=== PATIENT | male | born 1945 | race Caucasian/White ===

== ENCOUNTER 2018-03-12 19:15 | Inpatient (IN) | payer MEDICARE ==
[2018-03-12] MEDS ORDERED: PHYTONADIONE 5 MG in SODIUM CHLORIDE 0.9% 50 ML IVPB STA (19:35)
--- NOTE | 2018-03-12 19:55 | ED ---
General Adult HPI - General Chief complaint: GI Bleed Stated complaint: GI Bleed Time Seen by Provider: 03/12/18 19:25 Source: patient, RN notes reviewed Mode of arrival: EMS Limitations: no limitations - History of Present Illness Initial comments: This is a 72-year-old male who was transferred from [facility] to . Patient went there because he was lightheaded and short of breath lately and he also had some black stools. According to the physician at [facility] patient's hemoglobin was 4.5 and they were about to transfer him a unit of blood and he told me that he did have some guaiac positive stools. Patient was also on Coumadin which was not relayed to me and he did not have his Coumadin reversed at [facility]. Patient states she's also been very weak but denies chest pain or palpitations. Patient denies any recent fever chills per patient denies abdominal pain patient denies nausea vomiting diarrhea. - Related Data Allergies Allergy/AdvReac Type Severity Reaction Status Date / Time No Known Allergies Allergy Verified 03/12/18 19:32 Review of Systems ROS Statement: Those systems with pertinent positive or pertinent negative responses have been documented in the HPI. ROS Other: All systems not noted in ROS Statement are negative. Past Medical History Past Medical History: Hyperlipidemia, Hypertension, Skin Disorder, Thyroid Disorder Additional Past Medical History / Comment(s): urinary incontinence, reflex bradycardia History of Any Multi-Drug Resistant Organisms: None Reported Past Surgical History: Pacemaker Additional Past Surgical History / Comment(s): defibrillator Past Psychological History: No Psychological Hx Reported Smoking Status: Never smoker Past Alcohol Use History: None Reported Past Drug Use History: None Reported General Exam - General Exam Comments Initial Comments: GENERAL: Patient is well-developed and well-nourished. Patient is nontoxic and well- hydrated and is in mild distress. ENT: Neck is soft and supple. No significant lymphadenopathy is noted. Oropharynx is clear. Moist mucous membranes. Neck has full range of motion without eliciting any pain. EYES: Conjunctiva is pale. Extraocular movements were intact and pupils were equal round and reactive to light. Eyelids were unremarkable. PULMONARY: Unlabored respirations. Good breath sounds bilaterally. No audible rales rhonchi or wheezing was noted. CARDIOVASCULAR: There is a regular rate and rhythm without any murmurs gallops or rubs. ABDOMEN: Soft and nontender with normal bowel sounds. No palpable organomegaly was noted. There is no palpable pulsatile mass. SKIN: Patient's skin is pale. NEUROLOGIC: Patient is alert and oriented x3. Cranial nerves II through XII are grossly intact. Motor and sensory are also intact. Normal speech, volume and content. Symmetrical smile. MUSCULOSKELETAL: Normal extremities with adequate strength and full range of motion. LYMPHATICS: No significant lymphadenopathy is noted PSYCHIATRIC: Normal psychiatric evaluation. Limitations: no limitations Course Vital Signs 03/12/18 03/12/18 19:23 19:40 Temperature 97.7 F 98.1 F Pulse Rate 78 70 Respiratory 16 16 Rate Blood Pressure 144/67 141/68 O2 Sat by Pulse 100 99 Oximetry Medical Decision Making - Medical Decision Making I ordered a unit of fresh frozen plasma. I gave the patient vitamin K and I also gave the patient 1 unit of packed red blood cells. I spoke with Dr. Michel to admit the patient ICU he was in agreement. I spoke with the sound physicians in the accepted the admission. I wrote admitting orders. Critical Care Time Critical Care Time: Yes Total Critical Care Time: 35 Disposition Clinical Impression: Coagulopathy, GI bleed, Anemia Disposition: ADMITTED IP TO THIS HOSP Is patient prescribed a controlled substance at d/c from ED?: No Referrals: Nile Brower MD [Primary Care Provider] - 1-2 days Time of Disposition: 19:54
[2018-03-12] MEDS ORDERED: NALOXONE 0.4 MG/ML 1 ML VIAL IV PRN (19:56)
[2018-03-12 21:58] LABS: Glucose,Whole Blood 98 mg/dL (75-99)
[2018-03-12 23:44] VITALS: BMI 30.7
[2018-03-13] MEDS ORDERED: ALPRAZolam 0.25 MG TAB PO PRN (01:20)
[2018-03-13] MEDS ORDERED: TEMAZEPAM 15 MG CAP PO PRN (01:20)
[2018-03-13] MEDS ORDERED: HYDROcodone/APAP 5-325MG 1 EACH TAB PO PRN (01:20)
[2018-03-13 04:46] LABS: Calcium 8.6 mg/dL (8.4-10.2); INR 1.8 (<1.2); Magnesium 2.2 mg/dL (1.6-2.3); Phosphorus 3.4 mg/dL (2.5-4.5); Potassium 3.7 mmol/L (3.5-5.1); Prothrombin Time 16.9 sec (9.0-12.0)
[2018-03-13 04:56] LABS: Anisocytosis Slight; Basophils % (A) 0 %; Eosinophils # (A) 0.1 k/uL (0-0.7); Eosinophils % (A) 2 %; Hypochromasia Marked; Lymphocytes # (A) 0.8 k/uL (1.0-4.8); Lymphocytes % (A) 16 %; MCH 22.9 pg (25.0-35.0); MCHC 29.7 g/dL (31.0-37.0); MCV 77.2 fL (80.0-100.0); Mean Platelet Volume 7.8; Microcytosis Slight; Monocytes # (A) 0.4 k/uL (0-1.0); Monocytes % (A) 7 %; Neutrophils # (A) 3.8 k/uL (1.3-7.7); Neutrophils % (A) 72 %; Platelet Count 201 k/uL (150-450); Poikilocytosis Marked; RBC 2.52 m/uL (4.30-5.90); RDW 16.4 % (11.5-15.5); WBC 5.2 k/uL (3.8-10.6)
[2018-03-13 05:27] LABS: HCT 19.5 % (39.0-53.0); HGB 5.8 gm/dL (13.0-17.5)
[2018-03-13] MEDS ORDERED: POTASSIUM CHLORIDE ER 20 MEQ TAB.ER PO SCH (06:00)
[2018-03-13] MEDS: SODIUM CHLORIDE 0.9% 1,000 ML IV SCH ×2 (06:07→12:26)
[2018-03-13] MEDS: LEVOTHYROXINE 75 MCG TAB PO SCH (06:08)
--- NOTE | 2018-03-13 06:59 | XR ---
EXAMINATION TYPE: XR chest 1V DATE OF EXAM: 03/13/2018 HISTORY: chf. REFERENCE: NONE. FINDINGS: There is a bipolar pacemaker in place on the left. Heart size is within normal limits. The lungs are clear. Pleural spaces are clear. IMPRESSION: NO ACTIVE INTRATHORACIC DISEASE.
--- NOTE | 2018-03-13 07:46 | HP ---
HISTORY AND PHYSICAL CHIEF COMPLAINT: GI bleed. HISTORY OF PRESENT ILLNESS: This 72 -year-old gentleman with past medical history of hypertension, hyperlipidemia, history hypothyroidism, history of COPD, chronic persistent bradycardia, history of AICD, permanent pacemaker being followed by Dr. Brower in the outpatient setting was complaining of gastrointestinal bleed. The patient had black-colored stools for several days, because of weakness and continued melena, the patient presented to [facility] and hemoglobin was found to be 4.5. The patient was transferred to [facility] and admitted for further evaluation and treatment. The patient was given FFP, vitamin K IV and as well as 1 unit transfusion. Patient being closely monitored in ICU at this time. The patient did have some melenic stools in November while the patient was in [place] but no detailed workup was carried out. There is no history of fever, rigors. No history of headache, loss of consciousness, seizures. PAST MEDICAL HISTORY: Hypertension, hyperlipidemia, hypothyroidism, history of urinary incontinence, Cholecystectomy, history of AICD. MEDICATIONS PRIOR TO ADMISSION: Home medications are: 1. Synthroid 150 mcg p.o. daily. 2. Lipitor 20 mg. 3. Aspirin 81 mg b.i.d. 4. Cordarone 200 mg p.o. daily. 5. Zyloprim 300 mg. 6. Metoprolol 25 mg p.o. b.i.d. 7. Zestril 10 mg p.o. daily. 8. Proscar 5 mg. 9. Coumadin 5 mg q.a.m., 2.5 mg p.o. ALLERGIES: None. FAMILY HISTORY: No history of heart disease or strokes in the family. SOCIAL HISTORY: No history of smoking. No alcohol intake. REVIEW OF SYSTEMS: ENT: No diminished vision. No diminished hearing. Cardiovascular: No angina or palpitations, otherwise as mentioned. Respiration: No cough, hemoptysis. GI no nausea or vomiting. : No dysuria. Nervous system: No numbness, weakness. Allergy/Immunology: No asthma or hayfever. Musculoskeletal: As mentioned earlier. Hematology/Oncology: As mentioned. Endocrine: As mentioned earlier. Constitutional: As mentioned earlier. Dermatology: Negative. Rheumatology: Negative. Psychiatric: As mentioned earlier. PHYSICAL EXAMINATION: Alert and oriented times three. Pulse 64, blood pressure 140/70, respiration 20, temperature 98.4, pulse ox 100% on 2 L. HEENT conjunctivae pale. Oral mucosa moist. Neck is no jugular venous distention. No carotid bruit. No lymph node enlargement. Cardiovascular S1, S2. No S3, no S4. RESPIRATORY: Breath sounds diminished in the bases. No rhonchi. No crackles. ABDOMEN: Soft, nontender. No mass palpable. No hepatosplenomegaly. No ascites. Legs no edema. No swelling. NERVOUS SYSTEM: Higher functions as mentioned. Moves all 4 limbs. No focal motor or sensory deficits. Lymphatics: No lymph nodes palpable in the neck, axillae or groin. Skin no ulcer, rash or bleeding. Joints no active deforming arthropathy. CURRENT LABS: Glucose 98. The labs are reviewed. ASSESSMENT: 1. Acute blood loss anemia with possibly upper gastrointestinal bleeding. Rule out peptic ulcer disease. 2. Coumadin monitoring. 3. Hypertension. 4. Hyperlipidemia. 5. Hypothyroidism. 6. Urine incontinence. 7. AICD. 8. Cholecystectomy. RECOMMENDATIONS: In this 72-year-old gentleman who presented with multiple complex medical issues, I would recommend to continue current management and hold Coumadin at this time. Gastroenterology consultation, Dr. Michel for ICU management and p.o. otherwise monitor PT/INR, CBC, BMP. We will follow the patient closely. Discussed with the patient who understands and agrees. Further recommendations to follow. Proton pump inhibitors. See orders for details. MMODL / IJN: [id number] /
[2018-03-13] MEDS: METOPROLOL TARTRATE 25 MG TAB PO SCH ×2 (08:44→20:49)
[2018-03-13] MEDS: PANTOPRAZOLE 40 MG/10 ML VIAL IV SCH ×2 (08:44→20:49)
[2018-03-13] MEDS: AMIODARONE 200 MG TAB PO SCH (08:44)
[2018-03-13] MEDS ORDERED: PANTOPRAZOLE 40 MG/10 ML VIAL IV SCH (09:00)
--- NOTE | 2018-03-13 10:37 | CONS ---
CONSULTATION HISTORY OF PRESENT ILLNESS: Mr. Liriano is a 72-year-old male who is transferred from the [facility] for GI bleeding. He is followed by Dr. Brower and Quincy Baez who is his directional driller. He has a history of what appears to be paroxysmal atrial fibrillation and cardiomyopathy. He is status post AICD pacemaker placement in 2012. He was told he had a prior heart attack in the past, although he does not recall the timing. He does not feel the arrhythmia. For the last 2 weeks he has been complaining of progressive symptoms of dyspnea and fatigue and when he came into the emergency room, he was noted to be severely anemic and he had dark stool. The patient denies any nausea or vomiting. He denies any chest pain. He had an episode of dark stools a few months ago while in [place]. His last colonoscopy was 10 years ago. He denies any palpitation, but he has some dizziness with change in position recently. He has no PND, orthopnea, or peripheral edema. He is usually active physically and had no significant symptoms. His coronary risk factors are negative for smoking. He is a nondiabetic. He is hyperlipidemic and has hypertension. MEDICATION: At home: Coumadin, Proscar, Zestril 10 mg daily, metoprolol tartrate 25 mg, Zyloprim, Cordarone 200 mg daily, aspirin 81 mg daily, Lipitor 20 mg daily, and levothyroxine. The patient was on Xarelto in the past and was stopped because of recurrent epistaxis. REVIEW OF SYSTEMS: RESPIRATORY system: He has no history of documented asthma, emphysema or bronchitis. GI system: He has the dark stool as noted, black in color in November as well as now. system: No dysuria, hematuria. Nervous system: No history of stroke or seizure. PHYSICAL EXAMINATION: 72-year-old male, alert, oriented, in no apparent distress. Blood pressure 136/70 with a heart rate in the 60s. HEAD: Normocephalic. Eyes sclerae anicteric. Neck good carotid upstroke. No bruit. LUNGS: Clear to auscultation. HEART: Regular regular rate and rhythm S1, S2. No S3, no S4. No rub. No murmur. ABDOMEN: Soft, nontender. Positive bowel sounds. No megaly. EXTREMITIES: No edema. Intact distal pulses. LAB DATA: Revealed a hemoglobin 5.8, platelet count of 201. INR 1.8. BUN and creatinine 26 and 1.3, potassium 3.7. EKG performed in [place] revealed a sinus mechanism with a normal axis and intervals with nonspecific T-wave inversion cannot exclude ischemia. IMPRESSION: 1. Severe anemia with gastrointestinal bleeding related to the anticoagulation. 2. History of paroxysmal atrial fibrillation remains in sinus mechanism. 3. Probable cardiomyopathy, although I do not have evaluation of his left ventricular systolic function. 4. Status post AICD, permanent pacemaker implantation. 5. History of hypertension. 6. Hyperlipidemia. RECOMMENDATION: From the cardiac standpoint, I will obtain echocardiogram with Doppler. I will try to obtain the prior workup that was done by his prior directional driller as well as [facility] at the time of the implantation. An echocardiogram with Doppler will be obtained. I will obtain an evaluation of his thyroid function test because of the chronic treatment with amiodarone. Depending on his progress, further recommendation will be made. Thank you for this consult. We will follow with you. NELSY / IJN: [id number] /
--- NOTE | 2018-03-13 13:42 | P.CNPUL ---
History of Present Illness Consult date: 03/13/18 History of present illness: This is a 72-year-old male patient was hospitalized for profound anemia and GI bleeding. Apparently the patient has been having melanotic stool for the past 2 weeks. The patient is also on Coumadin. He presented to the hospital because of generalized weakness and dyspnea and his hemoglobin was as low as 4.9. Immediately received 2 units of packed RBC and is up to 5.8 this morning. He is not having any abdominal pain. No nausea or vomiting. No diarrhea. No hematemesis. He has no chest pain. He has been on Coumadin for many years. He had elevation his INR at 2.9 and he is INR today is down to 1.8 after receiving 5 mg of vitamin K. He is resting comfortably in bed. He is hemodynamically stable. He is receiving normal saline today to 150 mL an hour. He is nothing by mouth for now. He is awaiting a GI consultation. He is known to have cardiac disease including a pacemaker/defibrillator insertion. I think the anticoagulation was offered to him for chronic atrial fibrillation. First episode of GI bleed. No intake of nonsteroidal medication. No 7 liver cirrhosis. Most of alcoholism. No 70 peptic ulcer disease. Review of Systems Constitutional: Reports fatigue, Reports weakness Eyes: denies blurred vision, denies bulging eye, denies decreased vision, denies diplopia Ears: deny: decreased hearing, ear discharge, earache Ears, nose, mouth and throat: Denies headache, Denies sore throat Cardiovascular: Reports decreased exercise tolerance, Reports dyspnea on exertion Respiratory: Reports dyspnea Gastrointestinal: Reports melena Genitourinary: Reports as per HPI Musculoskeletal: Denies myalgias Musculoskeletal: absent: ankle pain, ankle stiffness, ankle swelling Integumentary: Denies pruritus, Denies rash Neurological: Denies numbness, Denies weakness Psychiatric: Denies anxiety, Denies depression Endocrine: Denies fatigue, Denies weight change Past Medical History Past Medical History: Hyperlipidemia, Hypertension, Skin Disorder, Thyroid Disorder Additional Past Medical History / Comment(s): Coronary artery disease, history of insertion of a pacer/defibrillator, chronic atrial fibrillation, hypertension , hyperlipidemia, hypothyroidism, chronic atrial fibrillation maintained on anticoagulation with warfarin, urinary incontinence History of Any Multi-Drug Resistant Organisms: None Reported Past Surgical History: Cholecystectomy, Pacemaker Additional Past Surgical History / Comment(s): defibrillator Past Anesthesia/Blood Transfusion Reactions: No Reported Reaction Type of Cardiac Device: Permanent Pacemaker, AICD Device Placement Date:: u Smoking Status: Never smoker Medications and Allergies Home Medications Medication Instructions Recorded Confirmed Type Allopurinol [Zyloprim] 300 mg PO DAILY 03/12/18 03/13/18 History Amiodarone [Cordarone] 200 mg PO DAILY 03/12/18 03/13/18 History Aspirin [Children's Aspirin] 81 mg PO DAILY 03/12/18 03/13/18 History Atorvastatin [Lipitor] 20 mg PO DAILY 03/12/18 03/13/18 History Finasteride [Proscar] 5 mg PO DAILY 03/12/18 03/13/18 History Levothyroxine Sodium [Synthroid] 150 mcg PO DAILY 03/12/18 03/13/18 History Metoprolol Tartrate 25 mg PO DAILY 03/12/18 03/13/18 History Warfarin [Coumadin] 5 mg PO SUMOWEFR 03/12/18 03/13/18 History Lisinopril [Zestril] 20 mg PO DAILY 03/13/18 03/13/18 History Sodium Chloride [[place]] 1 spray EA NOSTRIL DAILY 03/13/18 03/13/18 History Warfarin Sodium [Coumadin] 2.5 mg PO TUTHSA 03/13/18 03/13/18 History Allergies Allergy/AdvReac Type Severity Reaction Status Date / Time No Known Allergies Allergy Verified 03/13/18 12:00 Physical Exam Vitals: Vital Signs Temp Pulse Resp BP Pulse Ox 03/13/18 12:19 97.4 F L 20 L 16 129/71 99 03/13/18 12:00 97.4 F L 57 L 19 124/69 94 L 03/13/18 11:30 67 18 124/69 100 03/13/18 11:00 57 L 22 136/73 96 03/13/18 10:46 98.5 F 57 L 16 136/73 96 03/13/18 10:30 62 23 133/75 98 03/13/18 10:16 98.0 F 57 L 16 133/75 97 03/13/18 10:06 97.9 F 58 L 14 140/75 98 03/13/18 10:00 61 17 140/75 96 03/13/18 09:39 98.4 F 61 20 140/75 100 03/13/18 09:30 67 14 140/75 100 03/13/18 09:00 66 18 136/75 97 03/13/18 08:30 65 38 H 136/75 100 03/13/18 08:00 98.4 F 65 18 146/75 98 03/13/18 07:30 65 18 146/75 03/13/18 07:17 98.7 F 67 20 146/75 98 03/13/18 07:00 65 17 135/69 99 03/13/18 06:47 98.7 F 66 20 135/69 95 03/13/18 06:37 98.8 F 65 16 133/76 98 03/13/18 06:00 57 L 22 129/70 99 03/13/18 05:00 66 16 137/69 98 03/13/18 04:30 65 20 137/69 99 03/13/18 04:00 98.2 F 69 16 145/69 93 L 03/13/18 03:30 61 22 134/69 95 03/13/18 03:11 98.7 F 61 18 124/66 98 03/13/18 03:00 55 L 18 138/68 93 L 03/13/18 02:30 60 20 129/63 93 L 03/13/18 02:00 66 18 135/67 92 L 03/13/18 01:52 98.5 F 67 18 128/67 92 L 03/13/18 01:30 69 20 136/63 94 L 03/13/18 01:22 98.7 F 70 20 138/68 98 03/13/18 01:12 98.7 F 64 18 136/63 99 03/13/18 01:00 70 16 140/66 96 03/13/18 00:30 67 20 147/72 100 03/13/18 00:05 98.5 F 64 20 144/76 100 03/13/18 00:00 98.5 F 64 18 144/76 98 03/12/18 23:30 72 18 140/65 99 03/12/18 23:01 98.7 F 67 18 140/65 100 03/12/18 23:00 72 18 146/68 100 03/12/18 22:31 98.5 F 65 20 146/68 100 03/12/18 22:30 66 22 136/73 100 03/12/18 22:21 98.7 F 67 18 136/73 100 03/12/18 22:00 98.7 F 62 20 148/76 100 03/12/18 20:54 97.4 F L 70 18 150/70 100 03/12/18 19:40 98.1 F 70 16 141/68 99 03/12/18 19:23 97.7 F 78 16 144/67 100 Intake and Output 03/12/18 03/13/18 03/13/18 22:59 06:59 14:59 Intake Total 770 617 6081 Output Total 100 400 Balance 298 898 840 Intake: IV 298 360 620 FFP 298 PRBC 310 620 Phytonadione 5 mg In 50 Sodium Chloride 0.9% 50 ml @ 100 mls/hr IVPB ONCE STA Rx#:[id number] Oral 30 Blood Product 0 608 620 Ffp 24 Cpd Unit 0 298 [id number] Rc As-1 Unit 310 [id number] Rc As-1 Unit 310 [id number] Rc As-1 Unit 0 310 [id number] Output: Urine 100 400 Other: Voiding Method Bedside Commode Urinal # Voids 1 0 Weight 99.79 kg 100.4 kg Gen. appearance the patient is calm, likely distress Head exam was generally normal. There was no scleral icterus or corneal arcus. Mucous membranes were moist. Neck was supple and without jugular venous distension, thyromegaly, or carotid bruits. Carotids were easily palpable bilaterally. There was no adenopathy. Lungs were clear to auscultation and percussion, and with normal diaphragmatic excursion. No wheezes or rales were noted. Cardiac exam revealed the PMI to be normally situated and sized. The rhythm was regular and no extrasystoles were noted during several minutes of auscultation. The first and second heart sounds were normal and physiologic splitting of the second heart sound was noted. There were no murmurs, rubs, clicks, or gallops. Patient has a pacemaker in place and is rhythm is irregularly this point in time consistent with atrial fibrillation Abdominal exam revealed normal bowel sounds. The abdomen was soft, non-tender, and without masses, organomegaly, or appreciable enlargement of the abdominal aorta. Examination of the extremities revealed easily palpable radial, femoral and pedal pulses. There was no cyanosis, clubbing or edema. Examination of the skin revealed no evidence of significant rashes, suspicious appearing nevi or other concerning lesions. Neurologic to the patient is awake and alert and there is no focal neurological deficit. Results - Laboratory Findings CBC and BMP: 03/13/18 04:19 03/13/18 04:19 PT/INR, D-dimer PT 16.9 sec (9.0-12.0) H 03/13/18 04:19 INR 1.8 (<1.2) H 03/13/18 04:19 Abnormal lab findings: Abnormal Labs 03/12/18 03/13/18 03/13/18 20:04 04:19 04:19 RBC 2.52 L Hgb 5.8 L* Hct 19.5 L* MCV 77.2 L MCH 22.9 L MCHC 29.7 L RDW 16.4 H Lymphocytes # 0.8 L PT 16.9 H INR 1.8 H Sodium Chloride BUN Creatinine Crossmatch See Detail 03/13/18 04:19 RBC Hgb Hct MCV MCH MCHC RDW Lymphocytes # PT INR Sodium 146 H Chloride 110 H BUN 26 H Creatinine 1.30 H Crossmatch Assessment and Plan Plan: Assessment 1 upper GI bleeding with melanotic stool and profound anemia the time of presentation with a hemoglobin of 4.9, status post transfusion with 2 units of packed RBCs 2 exertional dyspnea secondary to profound anemia 3 lightheadedness to continue to profound anemia 4 blood loss anemia with a hemoglobin of 4.9 at time of admission 5 hyperlipidemia 6 hypertension 7 hypothyroidism 8 history of pacemaker/defibrillator insertion back in 2012 9 chronic atrial fibrillation maintained on anticoagulation with warfarin with an INR of 2.9 at time of admission and the patient received vitamin K with subsequent INR of 1.8 Plan Keep the patient nothing by mouth for now. Transfusion a total of 4 units of packed RBCs and monitor the hemoglobin. IV Protonix. Hold anticoagulation with warfarin. Vitamin K was given by mouth INR is down to 1.8. Continue IV fluids at 75 mL's an hour. GI consultation. We'll continue to follow the patient will be kept in the ICU for further monitoring.
[2018-03-13 13:43] LABS: Anisocytosis Slight; HCT 24.4 % (39.0-53.0); Hypochromasia Marked; MCH 24.7 pg (25.0-35.0); MCHC 31.1 g/dL (31.0-37.0); MCV 79.6 fL (80.0-100.0); Mean Platelet Volume 7.8; Platelet Count 198 k/uL (150-450); Poikilocytosis Marked; RBC 3.06 m/uL (4.30-5.90); RDW 16.8 % (11.5-15.5); WBC 5.9 k/uL (3.8-10.6)
[2018-03-13 13:44] LABS: HGB 7.6 gm/dL (13.0-17.5)
[2018-03-13] MEDS ORDERED: FUROSEMIDE 10 MG/ML 2 ML VIAL IV ONE (16:40)
--- NOTE | 2018-03-13 19:40 | PN ---
PROGRESS NOTE DATE OF SERVICE: 03/13/2018 This 72-year-old gentleman who was admitted with acute blood loss anemia with upper gastrointestinal bleeding also received multiple units of transfusions so far. The most recent hemoglobin was 5.8. 2 more units of transfusion recommended at this time. The patient also had an episode of bleeding in [place] which was not evaluated. The patient also received vitamin K and fresh frozen plasma also for continued melenic bleeding in the ER also. PAST MEDICAL HISTORY: Reviewed. REVIEW OF SYSTEMS: Cardiovascular: No angina or palpitations. Respirations: As mentioned earlier. GI: As mentioned earlier. no dysuria. No hematuria. Central nervous system: No numbness or weakness. CURRENT MEDICATIONS ARE: Reviewed and include: 1. [place] 5 mg q.6h p.r.n. 2. Xanax 0.5 t.i.d. 3. Cordarone 20 mg daily. 4. Synthroid 150 mcg daily. 5. Lopressor 25 mg p.o. b.i.d. 6. Narcan. 7. Restoril 50 mg q.h.s. PHYSICAL EXAMINATION: Alert, and oriented times three. Pulse 63. Blood pressure 130/77, respiration 27, temperature 98.4, pulse ox 100% on room air. HEENT conjunctivae normal. Neck is no jugular venous distention. Cardiovascular: S1, S2 muffled. Respiration: Breath sounds diminished in the bases. A few scattered rhonchi. No crackles. ABDOMEN: Soft, nontender. No mass palpable. Legs: No edema. No swelling. NERVOUS SYSTEM: Higher functions as mentioned earlier. Moves all four limbs. No focal motor or sensory deficits. Lymphatics: No lymph nodes palpable in the neck, axillae or groin. Skin no ulcer, rashes or bleeding. LABS: WBC 5.1, hemoglobin 11.6, creatinine is 1.30. ASSESSMENT: 1. Acute blood loss anemia with possible upper gastrointestinal bleeding, rule out peptic ulcer disease. 2. Coumadin monitoring. 3. Hypertension. 4. Hyperlipidemia. 5. Hypothyroidism. 6. Urinary incontinence. 7. AICD. 8. Cholecystectomy. 9. Possible paroxysmal atrial fibrillation. 10.History of possible congestive heart failure. DISCUSSION AND RECOMMENDATIONS: I recommend to continue current management. Continue monitoring. Symptomatic treatment. Hold the Coumadin at this time. Gastroenterology consultation. Possible endoscopes. Guarded prognosis because of multiple complex medical issues. Further recommendations to follow. MMODL / IJN: [id number] /
[2018-03-13 20:30] LABS: Anisocytosis Slight; HCT 26.1 % (39.0-53.0); HGB 8.1 gm/dL (13.0-17.5); Hypochromasia Marked; MCH 24.6 pg (25.0-35.0); MCHC 31.2 g/dL (31.0-37.0); MCV 78.8 fL (80.0-100.0); Mean Platelet Volume 7.5; Microcytosis Slight; Platelet Count 205 k/uL (150-450); Poikilocytosis Marked; RBC 3.31 m/uL (4.30-5.90); RDW 17.1 % (11.5-15.5)
[2018-03-13 20:53] LABS: Hemoglobin A1C 5.9 % (4.0-6.0)
[2018-03-14 04:47] LABS: Anisocytosis Slight; Basophils % (A) 0 %; Eosinophils # (A) 0.2 k/uL (0-0.7); Eosinophils % (A) 3 %; HCT 25.2 % (39.0-53.0); HGB 7.8 gm/dL (13.0-17.5); Hypochromasia Marked; Lymphocytes # (A) 0.9 k/uL (1.0-4.8); Lymphocytes % (A) 15 %; MCH 24.1 pg (25.0-35.0); MCV 77.7 fL (80.0-100.0); Mean Platelet Volume 8.9; Microcytosis Slight; Monocytes # (A) 0.4 k/uL (0-1.0); Monocytes % (A) 6 %; Neutrophils # (A) 4.4 k/uL (1.3-7.7); Neutrophils % (A) 74 %; Platelet Count 203 k/uL (150-450); Poikilocytosis Marked; RBC 3.25 m/uL (4.30-5.90); RDW 17.5 % (11.5-15.5)
[2018-03-14 04:56] LABS: INR 1.3 (<1.2); Partial Thromboplastin Time 24.2 sec (22.0-30.0); Prothrombin Time 12.5 sec (9.0-12.0)
[2018-03-14] MEDS: SODIUM CHLORIDE 0.9% 1,000 ML IV SCH ×2 (05:10→16:30)
[2018-03-14 05:11] LABS: Calcium 8.4 mg/dL (8.4-10.2); Phosphorus 3.4 mg/dL (2.5-4.5); Potassium 3.6 mmol/L (3.5-5.1)
[2018-03-14] MEDS ORDERED: Potassium Replacement Protocol 1 EACH MISC MISCELLANE PRN (05:57)
[2018-03-14] MEDS ORDERED: POTASSIUM CHLORIDE ER 20 MEQ TAB.ER PO SCH (06:00)
[2018-03-14] MEDS: LEVOTHYROXINE 75 MCG TAB PO SCH (06:25)
--- NOTE | 2018-03-14 07:07 | XR ---
EXAMINATION TYPE: XR chest 1V DATE OF EXAM: 03/14/2018 COMPARISON: 03/13/2018 HISTORY: Congestive heart failure TECHNIQUE: Single frontal view of the chest is obtained. FINDINGS: Dual lead left-sided cardiac device remains unchanged position. Lungs are clear. No pleura l effusion, pneumothorax or focal consolidation. No pulmonary vascular congestion in this patient wit h a history of CHF. Cardiomediastinal silhouette is upper limits of normal. Mild acromioclavicular ar thropathy and degenerative changes of the thoracic spine are noted. IMPRESSION: No acute cardiopulmonary process. No evidence radiographically of decompensated congesti ve heart failure.
[2018-03-14] MEDS: AMIODARONE 200 MG TAB PO SCH (09:31)
[2018-03-14] MEDS: METOPROLOL TARTRATE 25 MG TAB PO SCH ×2 (09:31→20:09)
[2018-03-14] MEDS: PANTOPRAZOLE 40 MG/10 ML VIAL IV SCH ×2 (09:32→20:09)
--- NOTE | 2018-03-14 10:17 | PN ---
PROGRESS NOTE Mr. Liriano is a 72-year-old male with known history of cardiomyopathy, history of paroxysmal fibrillation, status post AICD implant, who presented with severe anemia. He is doing better. He was transfused. He continues to be in sinus mechanism. He denies any chest pain. No palpitation. No syncope. I reviewed some of his prior data. Apparently, he has underwent cardiac catheterization in the past that showed a totally occluded first obtuse marginal branch with collaterals and a 40 to 50% stenosis in the LAD with an ejection fraction of 34%. He has no other complaints at this point. He continues to be at this time on amiodarone 200 mg daily, metoprolol 25 mg twice a day, and Protonix. PHYSICAL EXAMINATION: Blood pressure 131/60 with a heart rate in 50s. LUNGS: Clear. Heart: Regular rate and rhythm S1, S2. No S3 with systolic murmur. No diastolic murmur. ABDOMEN: Soft, nontender. EXTREMITIES: No edema. LAB DATA: Lab data revealed hemoglobin of 7.8 after transfusion. BUN creatinine 19 and 1.2. Potassium 3.6. IMPRESSION: 1. Severe bleeding, etiology unclear. The patient was transfused. 2. History of severe cardiomyopathy appears to be nonischemic. 3. Paroxysmal atrial fibrillation. 4. Status post AICD pacemaker implantation. RECOMMENDATION: From the cardiac standpoint I will re-initiate treatment with low-dose OMI inhibitor. Continue rest of his medical regimen. We will await the input of the Gastroenterology service and depending on his progress further recommendations will be made. MMODL / IJN: [id number] /
--- NOTE | 2018-03-14 10:57 | ECHOF ---
Referral Reason:cm MEASUREMENTS -------- HEIGHT: 180.3 cm WEIGHT: 99.3 kg BP: 112/58 RVIDd: 2.8 cm (< 3.3) IVSd: 1.6 cm (0.6 - 1.1) LVIDd: 5.7 cm (3.9 - 5.3) LVPWd: 1.4 cm (0.6 - 1.1) IVSs: 2.2 cm LVIDs: 4.4 cm LVPWs: 2.0 cm LA Diam: 3.6 cm (2.7 - 3.8) LAESV Index (A-L): 51.74 ml/m Ao Diam: 3.5 cm (2.0 - 3.7) AV Cusp: 2.3 cm (1.5 - 2.6) MV EXCURSION: 11.540 mm (> 18.000) MV EF SLOPE: 39 mm/s (70 - 150) EPSS: 2.5 cm MV E Haseeb: 1.21 m/s MV DecT: 257 ms MV A Haseeb: 0.85 m/s MV E/A Ratio: 1.42 AV maxP.14 mmHg AV meanP.94 mmHg FINDINGS -------- Pacerwire seen in RV and RA. AICD This was a technically adequate study. The left ventricular size is normal. There is moderate concentric left ventricular hypertrophy. O verall left ventricular systolic function is moderately impaired with, an EF between 35 - 40 %. The right ventricle is normal in size. LA is moderately dilated 34-39 ml/m2 The right atrium is normal in size. There is mild aortic valve sclerosis. There is mild aortic stenosis present. Peak/mean gradient a cross the Aortic Valve is 14.14mmHg / 6.94mmHg. The mitral valve leaflets are mildly thickened. Mild mitral annular calcification present. There is trace to mild mitral regurgitation. The tricuspid valve appears structurally normal. There is no pulmonic regurgitation present. The aortic root size is normal. The inferior vena cava is mildly dilated. There is no pericardial effusion. CONCLUSIONS -------- 1. Pacerwire seen in RV and RA. 2. AICD 3. This was a technically adequate study. 4. The left ventricular size is normal. 5. There is moderate concentric left ventricular hypertrophy. 6. Overall left ventricular systolic function is moderately impaired with, an EF between 35 - 40 %. 7. The right ventricle is normal in size. 8. LA is moderately dilated 34-39 ml/m2 9. The right atrium is normal in size. 10. There is mild aortic valve sclerosis. 11. There is mild aortic stenosis present. 12. Peak/mean gradient across the Aortic Valve is 14.14mmHg / 6.94mmHg. 13. The mitral valve leaflets are mildly thickened. 14. Mild mitral annular calcification present. 15. There is trace to mild mitral regurgitation. 16. The tricuspid valve appears structurally normal. 17. There is no pulmonic regurgitation present. 18. The aortic root size is normal. 19. The inferior vena cava is mildly dilated. 20. There is no pericardial effusion. [employer]: Lisset Gonzalez RDCS
--- NOTE | 2018-03-14 12:52 | P.PN ---
Subjective Progress Note Date: 03/14/18 Principal diagnosis: Acute GI bleeding This is a 72-year-old male patient was hospitalized for profound anemia and GI bleeding. Apparently the patient has been having melanotic stool for the past 2 weeks. The patient is also on Coumadin. He presented to the hospital because of generalized weakness and dyspnea and his hemoglobin was as low as 4.9. Immediately received 2 units of packed RBC and is up to 5.8 this morning. He is not having any abdominal pain. No nausea or vomiting. No diarrhea. No hematemesis. He has no chest pain. He has been on Coumadin for many years. He had elevation his INR at 2.9 and he is INR today is down to 1.8 after receiving 5 mg of vitamin K. He is resting comfortably in bed. He is hemodynamically stable. He is receiving normal saline today to 150 mL an hour. He is nothing by mouth for now. He is awaiting a GI consultation. He is known to have cardiac disease including a pacemaker/defibrillator insertion. I think the anticoagulation was offered to him for chronic atrial fibrillation. First episode of GI bleed. No intake of nonsteroidal medication. No history of liver cirrhosis alcoholism or peptic ulcer disease. Reevaluated today on 03/14/2018, patient seems to be comfortable, in no distress , denying any shortness of breath, no nausea, no abdominal pain, and no evidence of bleeding. Did have melanotic stools earlier. Hemoglobin today is 7.8. He received a total of 3 units of packed RBCs and 1 unit of fresh frozen plasma since admission. INR is 1.3 today. Objective - Vital Signs Vital signs: Vital Signs Temp 98.5 F 03/14/18 12:00 Pulse 52 L 03/14/18 12:00 Resp 20 03/14/18 12:00 BP 131/74 03/14/18 12:00 Pulse Ox 100 03/14/18 12:00 Intake & Output 03/13/18 03/14/18 03/14/18 18:59 06:59 18:59 Intake Total 1765 900 450 Output Total 952 1150 525 Balance 813 -250 -75 Weight 99.7 kg Intake: IV 1145 900 450 0.9 NACL 525 900 450 PRBC 620 Blood Product 620 Rc As-1 Unit 310 [id number] Rc As-1 Unit 310 [id number] Output: Urine 950 1150 525 Stool 2 Other: Voiding Method Bedside Commode Urinal Urinal Urinal # Bowel Movements 1 - Exam Physical Exam: Revealed a 72-year-old white male in no distress. Head: Atraumatic, normocephalic. HEENT:[Neck is supple.] [No neck masses.] [No thyromegaly.] [No JVD.] PERRLA, EOMI, no icterus. Chest: [Clear throughout, no crackles, no rhonchi, no wheezes.] Cardiac Exam: [Normal S1 and S2, no S3 gallop, no murmur.] Abdomen: [Soft, nontender, no megaly, no rebound, no guarding, normal bowel sounds.] Extremities: [No clubbing, no edema, no cyanosis.] Neurological Exam: [No focal neurologic deficit. Psychiatric: Normal mood affect and mental status examination Lymphatics: No lymphadenopathy.] - Labs CBC & Chem 7: 03/14/18 04:30 03/14/18 04:30 Labs: Abnormal Lab Results - Last 24 Hours (Table) 03/13/18 03/13/18 03/14/18 Range/Units 13:08 19:47 04:30 RBC 3.06 L 3.31 L 3.25 L (4.30-5.90) m/uL Hgb 7.6 L D 8.1 L 7.8 L (13.0-17.5) gm/dL Hct 24.4 L 26.1 L 25.2 L (39.0-53.0) % MCV 79.6 L 78.8 L 77.7 L (80.0-100.0) fL MCH 24.7 L 24.6 L 24.1 L (25.0-35.0) pg RDW 16.8 H 17.1 H 17.5 H (11.5-15.5) % Lymphocytes # 0.9 L (1.0-4.8) k/uL PT (9.0-12.0) sec INR (<1.2) Chloride (98-107) mmol/L 03/14/18 03/14/18 Range/Units 04:30 04:30 RBC (4.30-5.90) m/uL Hgb (13.0-17.5) gm/dL Hct (39.0-53.0) % MCV (80.0-100.0) fL MCH (25.0-35.0) pg RDW (11.5-15.5) % Lymphocytes # (1.0-4.8) k/uL PT 12.5 H (9.0-12.0) sec INR 1.3 H (<1.2) Chloride 109 H (98-107) mmol/L Assessment and Plan Assessment: 1 upper GI bleeding with melanotic stool and profound anemia the time of presentation with a hemoglobin of 4.9, status post transfusion with 3 units of packed RBCs and 1 unit of fresh frozen plasma 2 exertional dyspnea secondary to profound anemia 3 lightheadedness to continue to profound anemia 4 blood loss anemia with a hemoglobin of 4.9 at time of admission 5 hyperlipidemia 6 hypertension 7 hypothyroidism 8 history of pacemaker/defibrillator insertion back in 2012 9 chronic atrial fibrillation maintained on anticoagulation with warfarin with an INR of 2.9 at time of admission and the patient received vitamin K and 1 unit of fresh frozen plasma since admission. INR has been corrected down to 1.3. Recommendation: Continue supportive care measures, continue IV Protonix, continue to hold anticoagulation therapy, patient is presently in sinus rhythm. Scheduled for EGD today by gastroenterology. Time with Patient: Less than 30
[2018-03-14] MEDS ORDERED: PROPOFOL 10 MG/ML 20 ML VIAL IV ONE (14:57)
[2018-03-14] MEDS ORDERED: LIDOCAINE 1% INJ 10MG/ML (20 ML MDV) ONE (14:57)
[2018-03-14] MEDS ORDERED: LACTATED RINGERS 1,000 ML IV ONE (14:57)
--- NOTE | 2018-03-14 15:05 | P.CONS ---
History of Present Illness - Reason for Consult Consult date: 03/13/18 GI bleeding and anemia - History of Present Illness This is a 72-year-old male patient was hospitalized for profound anemia and GI bleeding. Apparently the patient has been having melanotic stool for the past 2 weeks. The patient is also on Coumadin. He presented to the hospital because of generalized weakness and dyspnea and his hemoglobin was as low as 4.9. Immediately received 2 units of packed RBC and is up to 5.8 this morning. He is not having any abdominal pain. No nausea or vomiting. No diarrhea. No hematemesis. He has no chest pain. He has been on Coumadin for many years. He had elevation his INR at 2.9 and he is INR today is down to 1.8 after receiving 5 mg of vitamin K. He is resting comfortably in bed. He is hemodynamically stable. He is receiving normal saline today to 150 mL an hour. He is nothing by mouth for now. He is awaiting a GI consultation. He is known to have cardiac disease including a pacemaker/defibrillator insertion. I think the anticoagulation was offered to him for chronic atrial fibrillation. First episode of GI bleed. No intake of nonsteroidal medication. No 7 liver cirrhosis. Most of alcoholism. No 70 peptic ulcer disease. Review of Systems Constitutional: Denies fever, chills, sweats, weight gain, or loss. HEENT: Negative for migraines, blurred vision or loss, earaches, drainage, tinnitus, oral mucosal lesions, dysphagia, or odynophagia. Cardiac: Negative for chest pain, arrhythmias, or palpitation. Respiratory: Negative for shortness of breath, hemoptysis, cough, or sputum production. Gastrointestinal: See HPI for pertinent findings. Genitourinary: Negative for hematuria, urgency, frequency, polyuria, dysuria. Musculoskeletal: Negative for muscle aches, swelling, arthritis, and arthralgias. Neurologic: Negative for stroke or TIA. Endocrine: Negative for diabetes or thyroid problems. Skin: Negative for rash or itching. Psychiatric: Negative history for depression and anxiety. Past Medical History Past Medical History: Hyperlipidemia, Hypertension, Skin Disorder, Thyroid Disorder Additional Past Medical History / Comment(s): Coronary artery disease, history of insertion of a pacer/defibrillator, chronic atrial fibrillation, hypertension , hyperlipidemia, hypothyroidism, chronic atrial fibrillation maintained on anticoagulation with warfarin, urinary incontinence History of Any Multi-Drug Resistant Organisms: None Reported Past Surgical History: Cholecystectomy, Pacemaker Additional Past Surgical History / Comment(s): defibrillator Past Anesthesia/Blood Transfusion Reactions: No Reported Reaction Type of Cardiac Device: Permanent Pacemaker, AICD Device Placement Date:: u Smoking Status: Never smoker Medications and Allergies Home Medications Medication Instructions Recorded Confirmed Type Allopurinol [Zyloprim] 300 mg PO DAILY 03/12/18 03/13/18 History Amiodarone [Cordarone] 200 mg PO DAILY 03/12/18 03/13/18 History Aspirin [Children's Aspirin] 81 mg PO DAILY 03/12/18 03/13/18 History Atorvastatin [Lipitor] 20 mg PO DAILY 03/12/18 03/13/18 History Finasteride [Proscar] 5 mg PO DAILY 03/12/18 03/13/18 History Levothyroxine Sodium [Synthroid] 150 mcg PO DAILY 03/12/18 03/13/18 History Metoprolol Tartrate 25 mg PO DAILY 03/12/18 03/13/18 History Warfarin [Coumadin] 5 mg PO SUMOWEFR 03/12/18 03/13/18 History Lisinopril [Zestril] 20 mg PO DAILY 03/13/18 03/13/18 History Sodium Chloride [Baca] 1 spray EA NOSTRIL DAILY 03/13/18 03/13/18 History Warfarin Sodium [Coumadin] 2.5 mg PO TUTHSA 03/13/18 03/13/18 History Allergies Allergy/AdvReac Type Severity Reaction Status Date / Time No Known Allergies Allergy Verified 03/13/18 12:00 Physical Exam Vitals: Vital Signs Temp Pulse Resp BP Pulse Ox 03/13/18 14:00 58 L 20 130/69 91 L 03/13/18 13:30 59 L 21 130/69 96 03/13/18 13:00 59 L 21 129/71 96 03/13/18 12:30 58 L 28 H 129/71 98 03/13/18 12:19 97.4 F L 20 L 16 129/71 99 03/13/18 12:00 97.4 F L 57 L 19 124/69 94 L 03/13/18 11:30 67 18 124/69 100 03/13/18 11:00 57 L 22 136/73 96 03/13/18 10:46 98.5 F 57 L 16 136/73 96 03/13/18 10:30 62 23 133/75 98 03/13/18 10:16 98.0 F 57 L 16 133/75 97 03/13/18 10:06 97.9 F 58 L 14 140/75 98 03/13/18 10:00 61 17 140/75 96 03/13/18 09:39 98.4 F 61 20 140/75 100 03/13/18 09:30 67 14 140/75 100 03/13/18 09:00 66 18 136/75 97 03/13/18 08:30 65 38 H 136/75 100 03/13/18 08:00 98.4 F 65 18 146/75 98 03/13/18 07:30 65 18 146/75 03/13/18 07:17 98.7 F 67 20 146/75 98 03/13/18 07:00 65 17 135/69 99 03/13/18 06:47 98.7 F 66 20 135/69 95 03/13/18 06:37 98.8 F 65 16 133/76 98 03/13/18 06:00 57 L 22 129/70 99 03/13/18 05:00 66 16 137/69 98 03/13/18 04:30 65 20 137/69 99 03/13/18 04:00 98.2 F 69 16 145/69 93 L 03/13/18 03:30 61 22 134/69 95 03/13/18 03:11 98.7 F 61 18 124/66 98 03/13/18 03:00 55 L 18 138/68 93 L 03/13/18 02:30 60 20 129/63 93 L 03/13/18 02:00 66 18 135/67 92 L 03/13/18 01:52 98.5 F 67 18 128/67 92 L 03/13/18 01:30 69 20 136/63 94 L 03/13/18 01:22 98.7 F 70 20 138/68 98 03/13/18 01:12 98.7 F 64 18 136/63 99 03/13/18 01:00 70 16 140/66 96 03/13/18 00:30 67 20 147/72 100 03/13/18 00:05 98.5 F 64 20 144/76 100 03/13/18 00:00 98.5 F 64 18 144/76 98 03/12/18 23:30 72 18 140/65 99 03/12/18 23:01 98.7 F 67 18 140/65 100 03/12/18 23:00 72 18 146/68 100 03/12/18 22:31 98.5 F 65 20 146/68 100 03/12/18 22:30 66 22 136/73 100 03/12/18 22:21 98.7 F 67 18 136/73 100 03/12/18 22:00 98.7 F 62 20 148/76 100 03/12/18 20:54 97.4 F L 70 18 150/70 100 03/12/18 19:40 98.1 F 70 16 141/68 99 03/12/18 19:23 97.7 F 78 16 144/67 100 Intake and Output 03/12/18 03/13/18 03/13/18 22:59 06:59 14:59 Intake Total 519 672 9516 Output Total 100 550 Balance 298 898 915 Intake: IV 298 360 845 0.9 NACL 225 FFP 298 PRBC 310 620 Phytonadione 5 mg In 50 Sodium Chloride 0.9% 50 ml @ 100 mls/hr IVPB ONCE STA Rx#:[id number] Oral 30 Blood Product 0 608 620 Ffp 24 Cpd Unit 0 298 [id number] Rc As-1 Unit 310 [id number] Rc As-1 Unit 310 [id number] Rc As-1 Unit 0 310 [id number] Output: Urine 100 550 Other: Voiding Method Bedside Commode Urinal # Voids 1 0 Weight 99.79 kg 100.4 kg General appearance: Appeared stated age, very pleasant in no acute distress. HEENT: Head is normocephalic and atraumatic. Pupils are equal and reactive. Oropharynx is clear without lesions. Neck: Supple without lymphadenopathy. Trachea midline. Heart: S1 S2. Irregular rate and rhythm. Lungs: No crackles or wheezes are heard. Abdomen: Soft, nontender, nondistended with bowel sounds. No peritoneal signs. No palpable organomegaly or masses. Extremities: Normal skin color and turgor. No cyanosis, rash, ulceration, clubbing, or edema. Radial and pedal pulses are 2/4 bilaterally. Neurological: No focal deficits. Strength and sensation are grossly intact. Results CBC & Chem 7: 03/14/18 04:30 03/14/18 04:30 Labs: Abnormal Lab Results - Last 24 Hours (Table) 03/12/18 03/13/18 03/13/18 Range/Units 20:04 04:19 04:19 RBC 2.52 L (4.30-5.90) m/uL Hgb 5.8 L* (13.0-17.5) gm/dL Hct 19.5 L* (39.0-53.0) % MCV 77.2 L (80.0-100.0) fL MCH 22.9 L (25.0-35.0) pg MCHC 29.7 L (31.0-37.0) g/dL RDW 16.4 H (11.5-15.5) % Lymphocytes # 0.8 L (1.0-4.8) k/uL PT 16.9 H (9.0-12.0) sec INR 1.8 H (<1.2) Sodium (137-145) mmol/L Chloride (98-107) mmol/L BUN (9-20) mg/dL Creatinine (0.66-1.25) mg/dL Crossmatch See Detail 03/13/18 03/13/18 Range/Units 04:19 13:08 RBC 3.06 L (4.30-5.90) m/uL Hgb 7.6 L D (13.0-17.5) gm/dL Hct 24.4 L (39.0-53.0) % MCV 79.6 L (80.0-100.0) fL MCH 24.7 L (25.0-35.0) pg MCHC (31.0-37.0) g/dL RDW 16.8 H (11.5-15.5) % Lymphocytes # (1.0-4.8) k/uL PT (9.0-12.0) sec INR (<1.2) Sodium 146 H (137-145) mmol/L Chloride 110 H (98-107) mmol/L BUN 26 H (9-20) mg/dL Creatinine 1.30 H (0.66-1.25) mg/dL Crossmatch Assessment and Plan Assessment: GI bleeding with profound anemia likely related to an upper GI source. Patient received blood transfusions and his coagulopathy is being corrected. Plan: Agree with your current management. Will continue PPI and proceed with upper endoscopy tomorrow.
--- NOTE | 2018-03-14 15:49 | P.PCN ---
Date of Procedure: 03/14/18 Procedure(s) Performed: Procedure: Esophagogastroduodenoscopy and biopsy. Preoperative diagnosis: GI bleeding and anemia. Postoperative diagnosis: 1. Small sliding hiatal hernia with no obvious esophagitis or complicated reflux disease. 2. Minimal antral gastritis. 3. Polypoid area in the descending duodenum not showing ulcerations or bleeding, biopsies obtained. Preparation sedation: Was provided by anesthesia. Brief clinical history: The patient is a 72-year-old male with chronic atrial fibrillation maintained on Coumadin who presented to the hospital in transfer from [place] because of history of shortness of breath and weakness and dark stools of around 2 weeks duration. He was found to have profound anemia with a hemoglobin of around 4.5. The patient received blood transfusions and vitamin K. This evaluation is scheduled to assess for an upper GI source of bleeding. The patient had colonoscopy more than 5 years ago. He denied any GI complaints including any change in bowel habits. Other details are summarized in the history and physical and dictated consultations and progress notes. Procedure: With the patient on his left lateral decubitus position and after informed consent and adequate sedation, I passed the Olympus-GIF 160 video upper endoscope through the cricopharyngeus down the esophagus. GE junction was around 42-43 cm from the incisors and there was a small sliding hiatal hernia. The esophagus did not show any obvious erosions, ulcers, strictures or Miles's esophagus noted there were no mucosal tears, varices or bleeding. The endoscope was then passed into the stomach which was insufflated with air and inspected in detail including the retroflex view in the cardia. There was minimal mottling, erythema and minimal friability in the antrum and immediate prepyloric area but no ulcers, erosions or bleeding. Pyloric channel did not show any ulcers. Duodenal bulb, post bulbar area and descending duodenum were inspected. There was a benign appearing polypoid area in the descending duodenum not showing any ulcerations or bleeding. There was no evidence of bleeding during this examination. I obtained biopsies from the duodenal polyp, antrum and esophagus then the endoscope was withdrawn. The patient tolerated the procedure well. Plan: I discussed the findings with the patient and his . I will keep him on clear liquid diet and prepare for colonoscopy for tomorrow and possibly follow that with a capsule endoscopy, based on the findings on colonoscopy, because of the finding of profound anemia on presentation, especially, if he has to stay on anticoagulants in the future for his atrial fibrillation.
[2018-03-14] MEDS ORDERED: PEG 3350-NA SULF,BICARB,CL/KCL 4,000 ML BOTTLE PO ONE (16:09)
[2018-03-14] MEDS: LISINOPRIL 5 MG TAB PO SCH (16:30)
--- NOTE | 2018-03-14 17:37 | P.PN ---
Subjective Progress Note Date: 03/14/18 Progress note being dictated for Dr. Mejias. Interval history: This is a 72-year-old gentleman admitted with acute blood loss anemia, status post multiple aunts fusions of packed RBCs. Recent hemoglobin 7.8. No further bleeding reported. Coumadin remains on hold. INR 1.3. Evaluated by GI and patient is scheduled for EGD today .Telemetry sinus rhythm. EF 35-40%. Review of systems: HEENT: No recent visual problems or hearing problems. Denied any sore throat. CARDIOVASCULAR: No chest pain, orthopnea, PND, no palpitations, no syncope. PULMONARY: No shortness of breath, no cough, no hemoptysis. GASTROINTESTINAL: No diarrhea, no nausea, no vomiting, no abdominal pain. Normoactive bowel sounds. NEUROLOGICAL: No headaches, no weakness, no numbness. HEMATOLOGICAL: Denies any bleeding or petechiae. GENITOURINARY: Denies any burning micturition, frequency, or urgency. MUSCULOSKELETAL/RHEUMATOLOGICAL: Denies any joint pain, swelling, or any muscle pain. ENDOCRINE: Denies any polyuria or polydipsia. PSYCHIATRIC: No anxiety, no depression The rest of the 14 point review of systems is negative Active Medications Hydrocodone Bitart/Acetaminophen ([place] 5-325) 1 each PO Q6HR PRN PRN Reason: Pain Alprazolam (Xanax) 0.25 mg PO TID PRN PRN Reason: Anxiety Amiodarone HCl (Cordarone) 200 mg PO DAILY [facility] Last Admin: 03/14/18 09:31 Dose: 200 mg Sodium Chloride (Saline 0.9%) 1,000 mls @ 75 mls/hr IV .[id number] [facility] Last Admin: 03/14/18 16:30 Dose: 75 mls/hr Levothyroxine Sodium (Synthroid) 150 mcg PO 0630 [facility] Last Admin: 03/14/18 06:25 Dose: 150 mcg Lisinopril (Zestril) 5 mg PO DAILY [facility] Last Admin: 03/14/18 16:30 Dose: 5 mg Metoprolol Tartrate (Lopressor) 25 mg PO BID [facility] Last Admin: 03/14/18 09:31 Dose: 25 mg Miscellaneous Information (Potassium Per Protocol) 1 each MISCELLANE DAILY PRN ; Protocol PRN Reason: Per Protocol Naloxone HCl (Narcan) 0.2 mg IV Q2M PRN PRN Reason: Opioid Reversal Pantoprazole Sodium (Protonix) 40 mg IV BID [facility] Last Admin: 03/14/18 09:32 Dose: 40 mg Temazepam (Restoril) 15 mg PO HS PRN PRN Reason: Insomnia Objective - Vital Signs Vital signs: Vital Signs Temp 97.8 F 03/14/18 08:00 Pulse 59 L 03/14/18 10:00 Resp 16 03/14/18 10:00 BP 119/59 03/14/18 10:00 Pulse Ox 99 03/14/18 10:00 Intake & Output 03/13/18 03/14/18 03/14/18 18:59 06:59 18:59 Intake Total 1765 900 300 Output Total 952 1150 300 Balance 813 -250 0 Weight 99.7 kg Intake: IV 1145 900 300 0.9 NACL 525 900 300 PRBC 620 Blood Product 620 Rc As-1 Unit 310 [id number] Rc As-1 Unit 310 [id number] Output: Urine 950 1150 300 Stool 2 Other: Voiding Method Bedside Commode Urinal Urinal Urinal # Bowel Movements 1 - Exam PHYSICAL EXAM: VITAL SIGNS: As above GENERAL: Lying in bed, no acute HEENT: Conjunctivae normal. eyes normal. Oral mucosa dry NECK: No JVD. No thyroid enlargement. No LNs CARDIOVASCULAR: S1, S2 muffled. No murmur RESPIRATION: Breath sounds diminished in the bases. No rhonchi or crackles. ABDOMEN: Soft, nontender . No guarding. no masses palpable.Bowel sounds heard. LEGS: No edema. no swelling PSYCHIATRY: Alert and oriented -3, mood and affect normal. NERVOUS SYSTEM: Cranial N 2-12 grossly normal. Moves all 4 limbs. Diffuse weakness No focal deficits. Skin: no ulcer no rash Joints: No active swelling. No inflammation. Lymphatic system. No LN neck axilla or groin. - Labs CBC & Chem 7: 03/14/18 04:30 03/14/18 04:30 Labs: Abnormal Lab Results - Last 24 Hours (Table) 03/12/18 03/13/18 03/13/18 Range/Units 20:04 13:08 19:47 RBC 3.06 L 3.31 L (4.30-5.90) m/uL Hgb 7.6 L D 8.1 L (13.0-17.5) gm/dL Hct 24.4 L 26.1 L (39.0-53.0) % MCV 79.6 L 78.8 L (80.0-100.0) fL MCH 24.7 L 24.6 L (25.0-35.0) pg RDW 16.8 H 17.1 H (11.5-15.5) % Lymphocytes # (1.0-4.8) k/uL PT (9.0-12.0) sec INR (<1.2) Chloride (98-107) mmol/L Crossmatch See Detail 03/14/18 03/14/18 03/14/18 Range/Units 04:30 04:30 04:30 RBC 3.25 L (4.30-5.90) m/uL Hgb 7.8 L (13.0-17.5) gm/dL Hct 25.2 L (39.0-53.0) % MCV 77.7 L (80.0-100.0) fL MCH 24.1 L (25.0-35.0) pg RDW 17.5 H (11.5-15.5) % Lymphocytes # 0.9 L (1.0-4.8) k/uL PT 12.5 H (9.0-12.0) sec INR 1.3 H (<1.2) Chloride 109 H (98-107) mmol/L Crossmatch Assessment and Plan Assessment: 1. Acute blood loss anemia, possible upper GI bleed, ruling out peptic ulcer disease 2. Coumadin monitoring 3. Hypertension 4. Hyperlipidemia 5. Possible proximal atrial fibrillation 6. AICD Plan: Continue on current medication regime ,monitoring and symptomatic treatment.NPO, awaiting EGD. Follow closely with GI. Further recommendations to follow. The impression and plan of care has been dictated as directed. : I performed a history and examination of this patient, discussed the same with the dictator. I agree with the dictator's note ,documented as a scribe. Any additional findings or plans will be noted.
[2018-03-15 04:28] LABS: Anisocytosis Slight; Basophils % (A) 0 %; Eosinophils # (A) 0.2 k/uL (0-0.7); Eosinophils % (A) 3 %; HCT 24.7 % (39.0-53.0); HGB 7.5 gm/dL (13.0-17.5); Hypochromasia Marked; Lymphocytes # (A) 0.7 k/uL (1.0-4.8); Lymphocytes % (A) 12 %; MCH 24.3 pg (25.0-35.0); MCHC 30.5 g/dL (31.0-37.0); MCV 79.5 fL (80.0-100.0); Mean Platelet Volume 7.9; Microcytosis Slight; Monocytes # (A) 0.4 k/uL (0-1.0); Monocytes % (A) 7 %; Neutrophils # (A) 4.6 k/uL (1.3-7.7); Neutrophils % (A) 77 %; Platelet Count 195 k/uL (150-450); Poikilocytosis Marked; RBC 3.11 m/uL (4.30-5.90); RDW 17.9 % (11.5-15.5)
[2018-03-15 04:36] LABS: INR 1.3 (<1.2); Partial Thromboplastin Time 23.9 sec (22.0-30.0); Prothrombin Time 12.2 sec (9.0-12.0)
[2018-03-15 04:56] LABS: Calcium 8.4 mg/dL (8.4-10.2); Phosphorus 3.1 mg/dL (2.5-4.5); Potassium 3.5 mmol/L (3.5-5.1)
[2018-03-15] MEDS: LEVOTHYROXINE 75 MCG TAB PO SCH (06:04)
[2018-03-15] MEDS: SODIUM CHLORIDE 0.9% 1,000 ML IV SCH ×2 (06:04→23:32)
--- NOTE | 2018-03-15 08:26 | XR ---
EXAMINATION TYPE: XR chest 1V DATE OF EXAM: 03/15/2018 HISTORY: Shortness of breath. COMPARISON: 03/14/2018 TECHNIQUE: Single view of the chest is submitted. FINDINGS: Demonstrated are scattered senescent parenchymal change. There is no evidence for focal infiltrate. The heart is stable. Hilar and mediastinal structures are within normal limits. Degenerative changes are seen of the dorsal spine. IMPRESSION: 1. Chronic changes without evidence for acute pulmonary disease.
[2018-03-15] MEDS: AMIODARONE 200 MG TAB PO SCH (08:32)
[2018-03-15] MEDS: LISINOPRIL 5 MG TAB PO SCH (08:32)
[2018-03-15] MEDS: PANTOPRAZOLE 40 MG/10 ML VIAL IV SCH ×2 (08:32→22:15)
[2018-03-15] MEDS: METOPROLOL TARTRATE 25 MG TAB PO SCH ×2 (08:32→21:20)
--- NOTE | 2018-03-15 10:29 | PN ---
PROGRESS NOTE Mr. Liriano is a 72-year-old male with history of cardiomyopathy, history of paroxysmal atrial fibrillation, status post AICD pacemaker implantation who presented with GI bleeding and low hemoglobin. He got transfused, underwent upper endoscopy yesterday and revealed no evidence of source of bleeding. He is scheduled to undergo colonoscopy today. He is feeling better. He denies any symptoms of chest pain. He denies any dizziness or palpitation. He denies any nausea. He continues to be at this time on amiodarone 200 mg daily, levothyroxine 0.15 mg daily, lisinopril 5 mg daily, metoprolol tartrate 25 mg twice a day. PHYSICAL EXAMINATION: Blood pressure 138/60 with the heart rate in 50s. LUNGS: Clear. HEART: Regular rate and rhythm. S1, S2. No S3 with systolic murmur. No diastolic murmur. ABDOMEN: Soft, nontender. EXTREMITIES: No edema. LAB DATA: Lab data revealed a hemoglobin of 7.5, BUN and creatinine of 18 and 1.1. His echocardiogram revealed an ejection fraction of 35% to 40% with mild aortic stenosis and mild mitral regurgitation. IMPRESSION: 1. Acute gastrointestinal bleeding, source unclear. 2. History of cardiomyopathy, stable and no evidence of congestive heart failure. 3. Paroxysmal atrial fibrillation, remains in sinus mechanism. 4. Status post automated implantable cardioverter-defibrillator pacemaker implantation. 5. History of coronary artery disease. RECOMMENDATION: From the cardiac standpoint, I will continue on the present medical therapy. We will await the input of the GI service after colonoscopy to see when we can reinitiate anticoagulation. MMODL / IJN: [id number] /
--- NOTE | 2018-03-15 11:42 | P.PN ---
Subjective Progress Note Date: 03/15/18 Principal diagnosis: Acute GI bleeding This is a 72-year-old male patient was hospitalized for profound anemia and GI bleeding. Apparently the patient has been having melanotic stool for the past 2 weeks. The patient is also on Coumadin. He presented to the hospital because of generalized weakness and dyspnea and his hemoglobin was as low as 4.9. Immediately received 2 units of packed RBC and is up to 5.8 this morning. He is not having any abdominal pain. No nausea or vomiting. No diarrhea. No hematemesis. He has no chest pain. He has been on Coumadin for many years. He had elevation his INR at 2.9 and he is INR today is down to 1.8 after receiving 5 mg of vitamin K. He is resting comfortably in bed. He is hemodynamically stable. He is receiving normal saline today to 150 mL an hour. He is nothing by mouth for now. He is awaiting a GI consultation. He is known to have cardiac disease including a pacemaker/defibrillator insertion. I think the anticoagulation was offered to him for chronic atrial fibrillation. First episode of GI bleed. No intake of nonsteroidal medication. No history of liver cirrhosis alcoholism or peptic ulcer disease. Reevaluated today on 03/14/2018, patient seems to be comfortable, in no distress , denying any shortness of breath, no nausea, no abdominal pain, and no evidence of bleeding. Did have melanotic stools earlier. Hemoglobin today is 7.8. He received a total of 3 units of packed RBCs and 1 unit of fresh frozen plasma since admission. INR is 1.3 today. Reevaluated today on 03/15/2018, patient continues to do well, relatively asymptomatic. No further episodes of GI bleeding over the last 24 hours. EGD was done yesterday, and it was basically unremarkable, nondiagnostic. Patient is scheduled to undergo colonoscopy today, and if nondiagnostic the patient will have a capsule endoscopy. In the meantime his hemoglobin is 7.5, it was 7.8 yesterday. Received a total of 3 units of packed RBCs and 1 unit of fresh frozen plasma since admission. Objective - Vital Signs Vital signs: Vital Signs Temp 98.7 F 03/15/18 08:00 Pulse 50 L 03/15/18 10:00 Resp 16 03/15/18 10:00 BP 133/63 03/15/18 10:00 Pulse Ox 95 04/24/18 10:00 Intake & Output 03/14/18 03/15/18 03/15/18 18:59 06:59 18:59 Intake Total 1175 975 300 Output Total 775 901 1 Balance 400 74 299 Weight 102.3 kg Intake: IV 925 975 300 0.9 NACL 825 975 Sodium Chloride 0.9% 1, 300 000 ml @ 75 mls/hr IV . [id number] [facility] Rx#:[id number] Oral 250 Output: Urine 775 600 Stool 301 1 Other: Voiding Method Urinal Urinal Toilet Urinal # Voids 1 # Bowel Movements 2 - Exam Physical Exam: Revealed a 72-year-old white male in no distress. Head: Atraumatic, normocephalic. HEENT:[Neck is supple.] [No neck masses.] [No thyromegaly.] [No JVD.] PERRLA, EOMI, no icterus. Chest: [Clear throughout, no crackles, no rhonchi, no wheezes.] Cardiac Exam: [Normal S1 and S2, no S3 gallop, no murmur.] Abdomen: [Soft, nontender, no megaly, no rebound, no guarding, normal bowel sounds.] Extremities: [No clubbing, no edema, no cyanosis.] Neurological Exam: [No focal neurologic deficit. Psychiatric: Normal mood affect and mental status examination Lymphatics: No lymphadenopathy.] - Labs CBC & Chem 7: 03/15/18 04:05 03/15/18 04:05 Labs: Abnormal Lab Results - Last 24 Hours (Table) 03/15/18 03/15/18 03/15/18 Range/Units 04:05 04:05 04:05 RBC 3.11 L (4.30-5.90) m/uL Hgb 7.5 L (13.0-17.5) gm/dL Hct 24.7 L (39.0-53.0) % MCV 79.5 L (80.0-100.0) fL MCH 24.3 L (25.0-35.0) pg MCHC 30.5 L (31.0-37.0) g/dL RDW 17.9 H (11.5-15.5) % Lymphocytes # 0.7 L (1.0-4.8) k/uL PT 12.2 H (9.0-12.0) sec INR 1.3 H (<1.2) Chloride 108 H (98-107) mmol/L Assessment and Plan Assessment: 1 upper GI bleeding with melanotic stool and profound anemia the time of presentation with a hemoglobin of 4.9, status post transfusion with 3 units of packed RBCs and 1 unit of fresh frozen plasma 2 exertional dyspnea secondary to profound anemia 3 lightheadedness to continue to profound anemia 4 blood loss anemia with a hemoglobin of 4.9 at time of admission 5 hyperlipidemia 6 hypertension 7 hypothyroidism 8 history of pacemaker/defibrillator insertion back in 2012 9 chronic atrial fibrillation maintained on anticoagulation with warfarin with an INR of 2.9 at time of admission and the patient received vitamin K and 1 unit of fresh frozen plasma since admission. Coumadin remains on hold. Recommendation: Continue supportive care measures, continue IV Protonix, continue to hold anticoagulation therapy, patient is presently in sinus rhythm. EGD report was reviewed, patient will have colonoscopy today. Consider transferring the patient out of the ICU today depending on the findings from the colonoscopy. Time with Patient: Less than 30
[2018-03-15] MEDS ORDERED: PROPOFOL 10 MG/ML 20 ML VIAL IV ONE (14:40)
[2018-03-15] MEDS ORDERED: LIDOCAINE 1% INJ 10MG/ML (20 ML MDV) ONE (14:40)
[2018-03-15] MEDS ORDERED: IV FLUID CONTINUATION 300 ML IV ONE (14:43)
--- NOTE | 2018-03-15 15:54 | P.PCN ---
Date of Procedure: 03/15/18 Procedure(s) Performed: Procedure total colonoscopy. Preoperative diagnosis GI bleeding and anemia. Postoperative diagnosis: 1. Diverticulosis with no evidence of acute diverticulitis, strictures, polyps or cancer. 2. No angiodysplasia or other potential sources of bleeding or any bleeding at the time of this exam. Preparation: GoLYTELY prep. Sedation: Was provided by anesthesia. Brief clinical history: The patient is a 72-year-old male with chronic atrial fibrillation maintained on Coumadin who presented to the hospital in transfer from [place] because of history of shortness of breath and weakness and dark stools of around 2 weeks duration. He was found to have profound anemia with a hemoglobin of around 4.5. The patient received blood transfusions and vitamin K. Yesterday he had an upper endoscopy that showed mild gastritis and benign-appearing polyp in the descending duodenum. I scheduled the colonoscopy to assess for other potential sources of bleeding in the absence of any significant findings on the upper endoscopy. His last colonoscopy was more than 5 years ago. He denied any GI complaints including any change in bowel habits. Other details are summarized in the history and physical and dictated consultations and progress notes. Procedure: With the patient on his left lateral decubitus position and after informed consent and adequate sedation, the perianal area was inspected and it did not show any fissures or fistulas. There were no masses felt on digital rectal examination. The Olympus CFQ 160L video colonoscope was then inserted in the rectum in the usual fashion and advanced to the cecum. There were multiple small diverticular orifices seen scattered on the left side with no evidence of acute diverticulitis or strictures. No significant polyps or tumors were seen. The mucosa appeared healthy with no angiodysplasias or bleeding. I retroflexed the endoscope in the rectum before the endoscope was withdrawn. The patient tolerated the procedure well. Plan: The patient was reassured and I discussed with his . Would proceed with capsule endoscopy today.
--- NOTE | 2018-03-15 19:23 | P.PN ---
Subjective Progress Note Date: 03/15/18 Progress note being dictated for Dr. Mejias. Interval history: This is a 72-year-old gentleman admitted with acute blood loss anemia, status post multiple aunts fusions of packed RBCs. Recent hemoglobin 7.8. No further bleeding reported. Coumadin remains on hold. INR 1.3. Evaluated by GI and patient is scheduled for EGD today .Telemetry sinus rhythm. EF 35-40%. Review of systems: HEENT: No recent visual problems or hearing problems. Denied any sore throat. CARDIOVASCULAR: No chest pain, orthopnea, PND, no palpitations, no syncope. PULMONARY: No shortness of breath, no cough, no hemoptysis. GASTROINTESTINAL: No diarrhea, no nausea, no vomiting, no abdominal pain. Normoactive bowel sounds. NEUROLOGICAL: No headaches, no weakness, no numbness. HEMATOLOGICAL: Denies any bleeding or petechiae. GENITOURINARY: Denies any burning micturition, frequency, or urgency. MUSCULOSKELETAL/RHEUMATOLOGICAL: Denies any joint pain, swelling, or any muscle pain. ENDOCRINE: Denies any polyuria or polydipsia. PSYCHIATRIC: No anxiety, no depression The rest of the 14 point review of systems is negative Active Medications Hydrocodone Bitart/Acetaminophen ([place] 5-325) 1 each PO Q6HR PRN PRN Reason: Pain Alprazolam (Xanax) 0.25 mg PO TID PRN PRN Reason: Anxiety Amiodarone HCl (Cordarone) 200 mg PO DAILY [facility] Last Admin: 03/14/18 09:31 Dose: 200 mg Sodium Chloride (Saline 0.9%) 1,000 mls @ 75 mls/hr IV .[id number] [facility] Last Admin: 03/14/18 16:30 Dose: 75 mls/hr Levothyroxine Sodium (Synthroid) 150 mcg PO 0630 [facility] Last Admin: 03/14/18 06:25 Dose: 150 mcg Lisinopril (Zestril) 5 mg PO DAILY [facility] Last Admin: 03/14/18 16:30 Dose: 5 mg Metoprolol Tartrate (Lopressor) 25 mg PO BID [facility] Last Admin: 03/14/18 09:31 Dose: 25 mg Miscellaneous Information (Potassium Per Protocol) 1 each MISCELLANE DAILY PRN ; Protocol PRN Reason: Per Protocol Naloxone HCl (Narcan) 0.2 mg IV Q2M PRN PRN Reason: Opioid Reversal Pantoprazole Sodium (Protonix) 40 mg IV BID [facility] Last Admin: 03/14/18 09:32 Dose: 40 mg Temazepam (Restoril) 15 mg PO HS PRN PRN Reason: Insomnia 03/15/2018 EGD completed yesterday reporting small sliding hiatal hernia, minimal antral gastritis, polyploid area of the descending duodenum without ulcerations or bleeding, biopsies obtained. No further signs or symptoms of bleeding reported. Hemoglobin 7.5 currently. INR 1.3. NPO for colonoscopy today. Telemetry sinus rhythm. Objective - Vital Signs Vital signs: Vital Signs Temp 97.9 F 03/15/18 16:30 Pulse 58 L 03/15/18 16:30 Resp 18 03/15/18 16:30 BP 153/75 03/15/18 16:30 Pulse Ox 94 L 03/15/18 16:30 Intake & Output 03/14/18 03/15/18 03/15/18 18:59 06:59 18:59 Intake Total 1175 975 725 Output Total 775 901 2 Balance 400 74 723 Weight 102.3 kg Intake: IV 925 975 725 0.9 NACL 825 975 Sodium Chloride 0.9% 1, 525 000 ml @ 75 mls/hr IV . [id number] [facility] Rx#:[id number] Oral 250 Output: Urine 775 600 Stool 301 2 Other: Voiding Method Urinal Urinal Toilet Urinal # Voids 1 2 # Bowel Movements 2 1 - Exam PHYSICAL EXAM: VITAL SIGNS: As above GENERAL: Sitting up in bed, no acute distress HEENT: Conjunctivae normal. eyes normal. Oral mucosa dry NECK: No JVD. No thyroid enlargement. No LNs CARDIOVASCULAR: S1, S2 muffled. No murmur RESPIRATION: Breath sounds diminished in the bases. No rhonchi or crackles. ABDOMEN: Soft, nontender . No guarding. no masses palpable.Bowel sounds heard. LEGS: No edema. no swelling PSYCHIATRY: Alert and oriented -3, mood and affect normal. NERVOUS SYSTEM: Cranial N 2-12 grossly normal. Moves all 4 limbs. Diffuse weakness No focal deficits. Skin: no ulcer no rash Joints: No active swelling. No inflammation. Lymphatic system. No LN neck axilla or groin. - Labs CBC & Chem 7: 03/15/18 04:05 03/15/18 04:05 Labs: Abnormal Lab Results - Last 24 Hours (Table) 03/15/18 03/15/18 03/15/18 Range/Units 04:05 04:05 04:05 RBC 3.11 L (4.30-5.90) m/uL Hgb 7.5 L (13.0-17.5) gm/dL Hct 24.7 L (39.0-53.0) % MCV 79.5 L (80.0-100.0) fL MCH 24.3 L (25.0-35.0) pg MCHC 30.5 L (31.0-37.0) g/dL RDW 17.9 H (11.5-15.5) % Lymphocytes # 0.7 L (1.0-4.8) k/uL PT 12.2 H (9.0-12.0) sec INR 1.3 H (<1.2) Chloride 108 H (98-107) mmol/L Assessment and Plan Assessment: 1. Acute blood loss anemia, possible upper GI bleed, ruling out peptic ulcer disease, status post EGD, nondiagnostic, colonoscopy pending. 2. Coumadin monitoring 3. Hypertension 4. Hyperlipidemia 5. Possible proximal atrial fibrillation 6. AICD Plan: Continue on current medication regime ,monitoring and symptomatic treatment.Coumadin remains on hold. NPO, awaiting colonoscopy. Follow closely with GI. Further recommendations to follow. The impression and plan of care has been dictated as directed. : I performed a history and examination of this patient, discussed the same with the dictator. I agree with the dictator's note ,documented as a scribe. Any additional findings or plans will be noted.
[2018-03-16] MEDS: SODIUM CHLORIDE 0.9% 1,000 ML IV SCH (06:09)
[2018-03-16] MEDS ORDERED: SIMETHICONE 40 MG/0.6 ML DROPS 2,000 MG/30 ML BOTTLE PO ONE (08:20)
--- NOTE | 2018-03-16 08:52 | XR ---
EXAMINATION TYPE: XR chest 1V DATE OF EXAM: 03/16/2018 COMPARISON: 03/15/2018 HISTORY: Shortness of breath TECHNIQUE: Single frontal view of the chest is obtained. FINDINGS: Heart is prominent is atherosclerotic change aorta. Cardiac device noted. Diffuse osteopen ia. No pneumothorax. Subsegmental changes at both lung bases. Atherosclerotic change aorta. Underlyin g COPD suspected. IMPRESSION: Stable cardiomegaly. No overt failure.
[2018-03-16] MEDS: PANTOPRAZOLE 40 MG/10 ML VIAL IV SCH (09:07)
[2018-03-16 09:56] LABS: Anisocytosis Slight; Basophils % (A) 0 %; Eosinophils # (A) 0.1 k/uL (0-0.7); Eosinophils % (A) 2 %; HCT 27.1 % (39.0-53.0); HGB 8.2 gm/dL (13.0-17.5); Hypochromasia Marked; Lymphocytes # (A) 0.5 k/uL (1.0-4.8); Lymphocytes % (A) 10 %; MCH 24.2 pg (25.0-35.0); MCHC 30.1 g/dL (31.0-37.0); MCV 80.3 fL (80.0-100.0); Mean Platelet Volume 8.1; Microcytosis Slight; Monocytes # (A) 0.4 k/uL (0-1.0); Monocytes % (A) 7 %; Neutrophils # (A) 4.3 k/uL (1.3-7.7); Neutrophils % (A) 79 %; Platelet Count 196 k/uL (150-450); Poikilocytosis Marked; RBC 3.38 m/uL (4.30-5.90); RDW 18.8 % (11.5-15.5); WBC 5.5 k/uL (3.8-10.6)
[2018-03-16 10:08] LABS: INR 1.3 (<1.2); Partial Thromboplastin Time 25.5 sec (22.0-30.0)
[2018-03-16 10:10] LABS: Calcium 8.1 mg/dL (8.4-10.2); Magnesium 1.9 mg/dL (1.6-2.3); Phosphorus 3.3 mg/dL (2.5-4.5); Potassium 3.7 mmol/L (3.5-5.1)
--- NOTE | 2018-03-16 10:47 | P.PN ---
Subjective Progress Note Date: 03/16/18 Principal diagnosis: Acute GI bleeding This is a 72-year-old male patient was hospitalized for profound anemia and GI bleeding. Apparently the patient has been having melanotic stool for the past 2 weeks. The patient is also on Coumadin. He presented to the hospital because of generalized weakness and dyspnea and his hemoglobin was as low as 4.9. Immediately received 2 units of packed RBC and is up to 5.8 this morning. He is not having any abdominal pain. No nausea or vomiting. No diarrhea. No hematemesis. He has no chest pain. He has been on Coumadin for many years. He had elevation his INR at 2.9 and he is INR today is down to 1.8 after receiving 5 mg of vitamin K. He is resting comfortably in bed. He is hemodynamically stable. He is receiving normal saline today to 150 mL an hour. He is nothing by mouth for now. He is awaiting a GI consultation. He is known to have cardiac disease including a pacemaker/defibrillator insertion. I think the anticoagulation was offered to him for chronic atrial fibrillation. First episode of GI bleed. No intake of nonsteroidal medication. No history of liver cirrhosis alcoholism or peptic ulcer disease. Reevaluated today on 03/14/2018, patient seems to be comfortable, in no distress , denying any shortness of breath, no nausea, no abdominal pain, and no evidence of bleeding. Did have melanotic stools earlier. Hemoglobin today is 7.8. He received a total of 3 units of packed RBCs and 1 unit of fresh frozen plasma since admission. INR is 1.3 today. Reevaluated today on 03/15/2018, patient continues to do well, relatively asymptomatic. No further episodes of GI bleeding over the last 24 hours. EGD was done yesterday, and it was basically unremarkable, nondiagnostic. Patient is scheduled to undergo colonoscopy today, and if nondiagnostic the patient will have a capsule endoscopy. In the meantime his hemoglobin is 7.5, it was 7.8 yesterday. Received a total of 3 units of packed RBCs and 1 unit of fresh frozen plasma since admission On 03/16/2018 patient seen in follow-up on medical surgical floor. No further GI bleeding in the last 4 hours, he had colonoscopy yesterday on 03/15/2018 and was found to have diverticulosis with no evidence of acute diverticulitis, strictures, as polyps or cancer, and there has been no other potential source of bleeding identified. Patient is currently undergoing capsule endoscopy. Denies any chest pain or dyspnea, vital signs are stable, he is on room air. Abdomen is soft, nontender. Based hemoglobin is 8.2, INR is 1.3, and patient received 3 units of packed red blood cells and 1 unit of fresh frozen plasma during this admission. No active pulmonary complaints, no active critical care issues, we will sign off at this time the patient on as-needed basis. Objective - Vital Signs Vital signs: Vital Signs Temp 98.2 F 03/16/18 06:12 Pulse 52 L 03/16/18 06:12 Resp 18 03/16/18 06:12 BP 150/73 03/16/18 06:12 Pulse Ox 96 03/16/18 06:12 Intake & Output 03/15/18 03/16/18 03/16/18 18:59 06:59 18:59 Intake Total 725 Output Total 2 Balance 723 Intake: IV 725 Sodium Chloride 0.9% 1, 525 000 ml @ 75 mls/hr IV . [id number] [facility] Rx#:[id number] Output: Stool 2 Other: Voiding Method Toilet Toilet Toilet Urinal Urinal Urinal # Voids 2 2 # Bowel Movements 1 - Exam Physical Exam: Revealed a 72-year-old white male in no distress. Head: Atraumatic, normocephalic. HEENT:[Neck is supple.] [No neck masses.] [No thyromegaly.] [No JVD.] PERRLA, EOMI, no icterus. Chest: [Clear throughout, no crackles, no rhonchi, no wheezes.] Cardiac Exam: [Normal S1 and S2, no S3 gallop, no murmur.] Abdomen: [Soft, nontender, no megaly, no rebound, no guarding, normal bowel sounds.] Extremities: [No clubbing, no edema, no cyanosis.] Neurological Exam: [No focal neurologic deficit. Psychiatric: Normal mood affect and mental status examination Lymphatics: No lymphadenopathy.] - Labs CBC & Chem 7: 03/16/18 09:15 03/16/18 09:15 Labs: Abnormal Lab Results - Last 24 Hours (Table) 0403/16/18 03/16/18 Range/Units 09:15 09:15 09:15 RBC 3.38 L (4.30-5.90) m/uL Hgb 8.2 L (13.0-17.5) gm/dL Hct 27.1 L (39.0-53.0) % MCH 24.2 L (25.0-35.0) pg MCHC 30.1 L (31.0-37.0) g/dL RDW 18.8 H (11.5-15.5) % Lymphocytes # 0.5 L (1.0-4.8) k/uL INR 1.3 H (<1.2) Chloride 108 H (98-107) mmol/L Calcium 8.1 L (8.4-10.2) mg/dL Assessment and Plan Plan: Assessment: 1 upper GI bleeding with melanotic stool and profound anemia the time of presentation with a hemoglobin of 4.9, status post transfusion with 3 units of packed RBCs and 1 unit of fresh frozen plasma 2 exertional dyspnea secondary to profound anemia 3 lightheadedness secondary to profound anemia 4 blood loss anemia with a hemoglobin of 4.9 at time of admission 5 hyperlipidemia 6 hypertension 7 hypothyroidism 8 history of pacemaker/defibrillator insertion back in 2012 9 chronic atrial fibrillation maintained on anticoagulation with warfarin with an INR of 2.9 at time of admission and the patient received vitamin K and 1 unit of fresh frozen plasma since admission. Coumadin remains on hold. Recommendation: Patient has had no further bleeding in the last 24 hours, underwent colonoscopy yesterday, however the source of bleeding was not identified, currently undergoing capsule endoscopy. Remains hemodynamically stable, denies any chest pain, or dyspnea. No active pulmonary/critical care issues at this time. And follow on as-needed basis. Thank you for this consultation I performed a history & physical examination of the patient and discussed their management with my nurse practitioner, Ivette Ramirez. I reviewed the nurse practitioner's note and agree with the documented findings and plan of care. Lung sounds are clear. The findings and the impression was discussed with the patient. I attest to the documentation by the nurse practitioner. Time with Patient: Less than 30
[2018-03-16] MEDS: LISINOPRIL 5 MG TAB PO SCH (12:32)
[2018-03-16] MEDS: AMIODARONE 200 MG TAB PO SCH (12:32)
[2018-03-16] MEDS: LEVOTHYROXINE 75 MCG TAB PO SCH (12:32)
[2018-03-16] MEDS: METOPROLOL TARTRATE 25 MG TAB PO SCH (12:32)
--- NOTE | 2018-03-16 12:57 | P.PN ---
Subjective Progress Note Date: 03/16/18 Principal diagnosis: Anemia GI bleed Status post EGD colonoscopy for evaluation of GI bleed black colored bowel movements anemia. EGD reported no evidence of peptic ulcer disease. Colonoscopy yesterday reported diverticulosis with no potential sources of bleeding. He is presently undergoing small bowel capsule endoscopy. He denies hematemesis hematochezia melena. Hemoglobin improved today 8.2. Anticoagulation has been on hold since admission. Denies fever. Denies abdominal pain. Objective - Vital Signs Vital signs: Vital Signs Temp 98.2 F 03/16/18 06:12 Pulse 52 L 03/16/18 06:12 Resp 18 03/16/18 06:12 BP 150/73 03/16/18 06:12 Pulse Ox 96 03/16/18 06:12 Intake & Output 03/15/18 03/16/18 03/16/18 18:59 06:59 18:59 Intake Total 725 Output Total 2 Balance 723 Intake: IV 725 Sodium Chloride 0.9% 1, 525 000 ml @ 75 mls/hr IV . [id number] [facility] Rx#:[id number] Output: Stool 2 Other: Voiding Method Toilet Toilet Toilet Urinal Urinal Urinal # Voids 2 2 2 # Bowel Movements 1 - Exam General appearance: The patient is alert, oriented, in no acute distress. HET: Head is normocephalic and atraumatic. Pupils are equal and reactive. Oropharynx is clear without lesions. Neck: Supple without lymphadenopathy. Trachea midline. Heart: S1 S2. Regular rate and rhythm. Lungs: No crackles or wheezes are heard. Abdomen: Soft, nontender, nondistended with bowel sounds. No peritoneal signs. No palpable organomegaly or masses. Extremities: Normal skin color and turgor. No cyanosis, rash, ulceration, clubbing, or edema. Radial and pedal pulses are 2/4 bilaterally. Neurological: No focal deficits. Strength and sensation are grossly intact. - Labs CBC & Chem 7: 03/16/18 09:15 03/16/18 09:15 Labs: Abnormal Lab Results - Last 24 Hours (Table) 03/16/18 03/16/18 03/16/18 Range/Units 09:15 09:15 09:15 RBC 3.38 L (4.30-5.90) m/uL Hgb 8.2 L (13.0-17.5) gm/dL Hct 27.1 L (39.0-53.0) % MCH 24.2 L (25.0-35.0) pg MCHC 30.1 L (31.0-37.0) g/dL RDW 18.8 H (11.5-15.5) % Lymphocytes # 0.5 L (1.0-4.8) k/uL INR 1.3 H (<1.2) Chloride 108 H (98-107) mmol/L Calcium 8.1 L (8.4-10.2) mg/dL Assessment and Plan (1) GI bleed Narrative/Plan: 72-year-old gentleman admitted with symptomatic acute blood loss anemia status post EGD colonoscopy with no clear source of bleeding no evidence of peptic ulcer disease sigmoid diverticulosis presently undergoing small bowel capsule endoscopy. Source of bleed unclear could be small bowel in nature however at this time patient has not had further bleeding and hemoglobin remained stable at 8.2. Status: Acute Code(s): K92.2 - GASTROINTESTINAL HEMORRHAGE, UNSPECIFIED SNOMED Code(s): 24506266 (2) Acute blood loss anemia Status: Acute Code(s): D62 - ACUTE POSTHEMORRHAGIC ANEMIA SNOMED Code(s): 564877321 (3) Coagulopathy Narrative/Plan: Warfarin induced Status: Acute Code(s): D68.9 - COAGULATION DEFECT, UNSPECIFIED SNOMED Code(s ): 69384696 Plan: 1. From a GI standpoint patient may be discharged after capsule endoscopy is completed. Return to office in 7-10 days for reevaluation. CBC in 3-5 days. We will defer to cardiology/medicine for reinitiation of anticoagulation. From a GI standpoint may resume anticoagulation will close observation of CBC in outpatient setting. Assessment and plan of care discussed with Dr. Burton
--- NOTE | 2018-03-16 14:27 | P.PN ---
Subjective Progress Note Date: 03/16/18 Mr. Liriano is seen and examined today on the medical floor. He underwent EGD and colonoscopy with Dr. Saha which revealed no bleeding. Capsule study is ongoing currently. Hgb today is 8.2 with no active bleeding. Blood pressure 150/ 43 with heart rate 52 afebrile and maintaining oxygen saturation on room air. Overall he states he is feeling better. Denies chest pain, shortness of breath, dizziness or palpitations. He states in the past he has tried different anticoagulants and would like to explore other options. Objective - Vital Signs Vital signs: Vital Signs Temp 98.2 F 03/16/18 06:12 Pulse 52 L 03/16/18 06:12 Resp 18 03/16/18 06:12 BP 150/73 03/16/18 06:12 Pulse Ox 96 03/16/18 06:12 Intake & Output 03/15/18 03/16/18 03/16/18 18:59 06:59 18:59 Intake Total 725 Output Total 2 Balance 723 Intake: IV 725 Sodium Chloride 0.9% 1, 525 000 ml @ 75 mls/hr IV . [id number] [facility] Rx#:[id number] Output: Stool 2 Other: Voiding Method Toilet Toilet Toilet Urinal Urinal Urinal # Voids 2 2 2 # Bowel Movements 1 - Exam GENERAL: Well-appearing, well-nourished and in no acute distress. NECK: Supple without JVD or thyromegaly. LUNGS: Breath sounds clear to auscultation bilaterally. Respiration equal and unlabored. No wheezes, rales or rhonchi. HEART: Regular rate and rhythm withsystolic ejection murmurat the base,no rubs or gallops. S1 and S2 heard. EXTREMITIES: Normal range of motion, no edema. No clubbing or cyanosis. Peripheral pulses intact and strong. - Labs CBC & Chem 7: 03/16/18 09:15 03/16/18 09:15 Labs: Abnormal Lab Results - Last 24 Hours (Table) 03/16/18 03/16/18 03/16/18 Range/Units 09:15 09:15 09:15 RBC 3.38 L (4.30-5.90) m/uL Hgb 8.2 L (13.0-17.5) gm/dL Hct 27.1 L (39.0-53.0) % MCH 24.2 L (25.0-35.0) pg MCHC 30.1 L (31.0-37.0) g/dL RDW 18.8 H (11.5-15.5) % Lymphocytes # 0.5 L (1.0-4.8) k/uL INR 1.3 H (<1.2) Chloride 108 H (98-107) mmol/L Calcium 8.1 L (8.4-10.2) mg/dL Assessment and Plan Assessment: ASSESSMENT 1. acute GI bleeding of unclear source long-term anticoagulation secondary to atrial fibrillation 2. History of cardiomyopathy, currently euvolemic 3. Paroxysmal atrial fibrillation on long-term anticoagulation with Coumadin. Currently being held secondary to GI bleeding. Maintaining sinus mechanism. 4. Status post AICD pacemaker implantation 5. History of coronary artery disease PLAN from cardiology's perspective we recommend continuing with current medical therapy. Study is ongoing. Hemoglobin is stable at 8.2 however anticoagulation should continue to be held until source of bleeding is determined and hemoglobin has gone up. We will check with his insurance providers as far as coverage for Eliquis 5 mg by mouth twice a day. If this is of reasonable cost it can be started in the office per Dr. Castellano. The above impression and plan of care have been discussed and directed by the signing physician. Carola Simmons, nurse practitioner, acting as scribe for signing physician.
[2018-03-16 14:48] VITALS: BP 123/69; PULSE 57; RESP 16; TEMP 99.1
--- NOTE | 2018-03-16 21:57 | DS ---
DISCHARGE SUMMARY FINAL DIAGNOSES: 1. Acute blood loss anemia with acute gastrointestinal bleed without any identifiable primary source. 2. Coumadin monitoring. 3. Hypertension. 4. Hyperlipidemia. 5. Paroxysmal atrial fibrillation. 6. Automated implantable cardioverter defibrillator. DISCHARGE DISPOSITION: The patient will be discharged in stable condition with guarded prognosis. HISTORY OF PRESENT ILLNESS: This 72-year-old gentleman with a past medical history of multiple medical problems was admitted with possible GI bleed. Hemoglobin improved after transfusion to 8.2. Upper and lower endoscopy did not show acute abnormality. Capsule endoscopic study was undertaken. The final reports are pending at this time, to be followed up with Gastroenterology in the outpatient setting. On exam, vitals are stable. CARDIOVASCULAR SYSTEM: S1, S2 muffled. ABDOMEN: Soft. NERVOUS SYSTEM: No focal deficit. DISCHARGE ADVICE AND MEDICATIONS: 1. Diet is cardiac. 2. Activity limited until followup. 3. Follow up with Dr. Brower in 2-3 days. 4. Follow with Cardiology and Pulmonology as recommended. 5. Zyloprim 300 mg daily. 6. Cordarone 200 mg daily. 7. Lipitor 20 mg daily. 8. Proscar 5 mg p.o. daily. 9. Synthroid 150 mg p.o. daily. 10.Zestril 5 mg p.o. daily. 11.Lopressor 20 mg p.o. b.i.d. 12.[place] Nasal [place]. 13.Resume anticoagulation in the outpatient setting if the capsule endoscopy is negative. Follow up with Gastroenterology as advised. MMMARLEYL / THELMAN: [id number] /
--- NOTE | 2018-03-18 11:48 | CDI ---
Last Revision, October 2017 Documentation Clarification Form Date: 03/17/18 From: Daria Wills Phone: If you have a question regarding this query, please contact Cynthia Patel at [phone] Admit Date: 03/12/2018 7:55:00 PM Patient Name: Miguelangel Liriano Visit Number: [id number] Discharge Date: 03/16/18 ATTENTION: The Clinical Documentation Specialists (CDI) and [facility] Coding Staff appreciate your assistance in clarifying documentation. Please respond to the clarification below the line at the bottom and electronically sign. The CDI & [facility] Coding staff will review the response and follow-up if needed. Please note: Queries are made part of the Legal Health Record. If you have any questions, please contact the author of this message via ITS. Dr. Hanane Mejias Minimal antral gastritis is documented in Evi Hopkins's/your 03/15 progress note. It is also documented in the procedure note. Patient history/risk factors: Patient was admitted for acute GI bleed and blood loss anemia. The patient also has hypertension, coronary artery disease and COPD. Clinical Indicators: GI bleed Treatment: IV protonix Surgical Pathology: Chronic active gastritis In your professional opinion, can you please clarify the acuity of the antral gastritis? Acute Chronic Other, please specify Unable to determine Acute MTDD
== END 2018-03-16 16:52 | disposition home or self-care (01) | DRG 378 ==
LOC: EC 19:15 → 6ICU 19:55 → 4MS4W 03-15 18:25
PROVIDERS: ADMIT Hospitalist; ATTEND Hospitalist
PROC: 30233K1 Transfusion of Nonautologous Frozen Plasma into Peripheral Vein, Percutaneous Approach (ICD-10-PCS; 2018-03-12)
PROC: 30233N1 Transfusion of Nonautologous Red Blood Cells into Peripheral Vein, Percutaneous Approach (ICD-10-PCS; 2018-03-13)
PROC: 0DB78ZX Excision of Stomach, Pylorus, Via Natural or Artificial Opening Endoscopic, Diagnostic (ICD-10-PCS; 2018-03-14)
PROC: 0DB58ZX Excision of Esophagus, Via Natural or Artificial Opening Endoscopic, Diagnostic (ICD-10-PCS; 2018-03-14)
PROC: 0DB98ZX Excision of Duodenum, Via Natural or Artificial Opening Endoscopic, Diagnostic (ICD-10-PCS; principal; 2018-03-14 07:30)
PROC: 0DJD8ZZ Inspection of Lower Intestinal Tract, Via Natural or Artificial Opening Endoscopic (ICD-10-PCS; 2018-03-15)
DX: K92.2 Gastrointestinal hemorrhage, unspecified (principal); D62 Acute posthemorrhagic anemia; I42.9 Cardiomyopathy, unspecified; I48.2 Chronic atrial fibrillation; K29.00 Acute gastritis without bleeding; J44.9 Chronic obstructive pulmonary disease, unspecified; E03.9 Hypothyroidism, unspecified; E78.5 Hyperlipidemia, unspecified; I10 Essential (primary) hypertension; K57.30 Diverticulosis of large intestine without perforation or abscess without bleeding; I25.10 Atherosclerotic heart disease of native coronary artery without angina pectoris; I25.2 Old myocardial infarction; K31.7 Polyp of stomach and duodenum; K44.9 Diaphragmatic hernia without obstruction or gangrene; R32 Unspecified urinary incontinence; R79.1 Abnormal coagulation profile; Z95.810 Presence of automatic (implantable) cardiac defibrillator; Z79.01 Long term (current) use of anticoagulants; Z79.82 Long term (current) use of aspirin; Z79.899 Other long term (current) drug therapy; Z79.890 Hormone replacement therapy; Z90.49 Acquired absence of other specified parts of digestive tract
CPT/HCPCS: 36415; 43239; 45378; 71045; 80048; 83036; 83735; 84100; 84132; 84443; 85025; 85027; 85610; 85730; 86850; 86900; 86901; 86920; 88305; 88342; 91110; 93306; 94760; 99291

== ENCOUNTER 2024-12-01 20:27 | Observation (INO) | payer MEDICARE ==
[2024-12-01] MEDS ORDERED: NALOXONE 0.4 MG/ML 1 ML VIAL IV PRN (21:11)
--- NOTE | 2024-12-01 21:14 | ED ---
Arrhythmia/Palpitations HPI - General Chief Complaint: Arrhythmia/Palpitations Stated Complaint: AFIB Time Seen by Provider: 12/01/24 20:37 Source: patient, EMS Mode of arrival: EMS Limitations: no limitations - History of Present Illness Initial Comments: 79-year-old male presenting as a transfer from [facility]. Patient woke up today feeling generally weak and dizzy. He tried to go about his day but eventually his symptoms prevented him from going about his normal activities. He was seen at his PCPs office where he then also developed some shortness of breath and felt like he was going to pass out. No chest pain. He was instructed to report to the ER. At [facility] he was found to be in A-fib. Patient does have history of A-fib, he does have a pacemaker and a watchman, he is on no blood thinners due to history of GI bleed with transfusions. [place] also notes runs of V. tach. Patient was started on amiodarone drip there. Patient was transferred here for cardiology evaluation. Patient states that he feels fine at this time. His dizziness and weakness seems to have improved, however he has been mostly sitting/lying down. He is having no chest pain or difficulty breathing at this time. No abdominal pain, nausea, vomiting. No headache, vision or hearing changes, numbness, tingling. No URI-like symptoms. No fever. - Related Data Home Medications Medication Instructions Recorded Confirmed Amiodarone [Cordarone] 200 mg PO DAILY 03/12/18 03/13/18 Atorvastatin [Lipitor] 20 mg PO DAILY 03/12/18 03/13/18 Finasteride [Proscar] 5 mg PO DAILY 03/12/18 03/13/18 Levothyroxine Sodium [Synthroid] 150 mcg PO DAILY 03/12/18 03/13/18 allopurinoL [Zyloprim] 300 mg PO DAILY 03/12/18 03/13/18 Sodium Chloride [[place]] 1 spray EA NOSTRIL DAILY 03/13/18 03/13/18 Previous Rx's Medication Instructions Recorded Metoprolol Tartrate [Lopressor] 25 mg PO BID #60 tab 03/16/18 lisinopriL [Zestril] 5 mg PO DAILY #30 tab 03/16/18 Allergies Allergy/AdvReac Type Severity Reaction Status Date / Time No Known Allergies Allergy Verified 03/13/18 12:00 Review of Systems ROS Statement: Those systems with pertinent positive or pertinent negative responses have been documented in the HPI. ROS Other: All systems not noted in ROS Statement are negative. Past Medical History Past Medical History: Atrial Fibrillation, Hyperlipidemia, Hypertension, Skin Disorder, Thyroid Disorder Additional Past Medical History / Comment(s): Coronary artery disease, history of insertion of a pacer/defibrillator, chronic atrial fibrillation, hypertension, hyperlipidemia, hypothyroidism, chronic atrial fibrillation maintained on anticoagulation with warfarin, urinary incontinence History of Any Multi-Drug Resistant Organisms: None Reported Past Surgical History: Cholecystectomy, Pacemaker Additional Past Surgical History / Comment(s): defibrillator Past Anesthesia/Blood Transfusion Reactions: No Reported Reaction Type of Cardiac Device: Permanent Pacemaker, AICD Device Placement Date:: u Past Psychological History: No Psychological Hx Reported Past Alcohol Use History: None Reported Past Drug Use History: None Reported General Exam Limitations: no limitations General appearance: alert, in no apparent distress Head exam: Present: atraumatic, normocephalic, normal inspection Eye exam: Present: normal appearance, PERRL, EOMI Neck exam: Present: normal inspection. Absent: meningismus Respiratory exam: Present: normal lung sounds bilaterally. Absent: respiratory distress, wheezes, rales, rhonchi, stridor Cardiovascular Exam: Present: regular rate, irregular rhythm, normal heart sounds. Absent: systolic murmur, diastolic murmur, rubs, gallop, clicks GI/Abdominal exam: Present: soft. Absent: distended, tenderness, guarding, rebound, rigid Extremities exam: Present: pedal edema (2+) Neurological exam: Present: alert, oriented X3 Psychiatric exam: Present: normal affect, normal mood Skin exam: Present: warm, dry Course Vital Signs 12/01/24 12/01/24 12/01/24 20:28 22:25 23:33 Temperature 98.4 F Pulse Rate 63 96 57 L Respiratory 16 18 14 Rate Blood Pressure 141/96 131/65 120/63 O2 Sat by Pulse 97 98 95 Oximetry 12/02/24 03:49 Temperature Pulse Rate 61 Respiratory 18 Rate Blood Pressure 125/69 O2 Sat by Pulse Oximetry Medical Decision Making - Medical Decision Making 79-year-old male presenting as a transfer from [facility]. Patient was sent here for cardiology evaluation, at [place] she was found to be in A-fib but also had some runs of V. tach. Patient does have a pacemaker and a watchman. He does have history of A-fib, no blood thinners due to history of GI bleed requiring transfusions. Patient was having dizziness and weakness earlier in the day, he is feeling better at this time. Is currently finishing his amiodarone drip, his rate is maintained in the 60s during my time in his room. I reviewed the patient's labs, EKGs, and chest x-ray. He had a negative troponin and no acute process seen on chest x-ray. Mildly elevated BNP. Patient will be admitted for cardiology evaluation. He is agreeable to this plan. I discussed this case with my attending Dr. Garzon. Was pt. sent in by a medical professional or institution (, PA, LOAN AND CREDIT MANAGER, urgent care, hospital, or usp...) When possible be specific @ -Transferred from [facility] Did you speak to anyone other than the patient for history (EMS, parent, family, police, friend...)? What history was obtained from this source @ -No Did you review nursing and triage notes (agree or disagree)? Why? @ -I reviewed and agree with nursing and triage notes Were old charts reviewed (outside hosp., previous admission, EMS record, old EKG, old radiological studies, urgent care reports/EKG's, usp records)? Report findings @ -I reviewed the patient's records from [facility], including the physician note, labs, EKGs, and chest x-ray. Differential Diagnosis (chest pain, altered mental status, abdominal pain women, abdominal pain men, vaginal bleeding, weakness, fever, dyspnea, syncope, headache, dizziness, GI bleed, back pain, seizure, CVA, palpatations, mental health, musculoskeletal)? @ -Differential Palpitations Ventricular arrhythmias, atrial arrhythmias, myocardial infarction, anemia, thyrotoxicosis, electrolyte imbalance, hypokalemia, pulmonary embolism, pulmonary disease, drugs, alcohol, anxiety, stress.... This is not meant to be an all-inclusive list. EKG interpreted by me (3pts min.). @ -EKG shows atrial fibrillation with aberrant conduction or ventricular premature complexes. Ventricular rate 61. QRS 141. QT 475. QTc 478. X-rays interpreted by me (1pt min.). @ -None done CT interpreted by me (1pt min.). @ -None done U/S interpreted by me (1pt. min.). @ -None done What testing was considered but not performed or refused? (CT, X-rays, U/S, labs)? Why? @ -None What meds were considered but not given or refused? Why? @ -None Did you discuss the management of the patient with other professionals (professionals i.e. DrLee, PA, LOAN AND CREDIT MANAGER, lab, RT, psych nurse, healthcare social worker, french cord binder, teacher, vessel traffic officer, nurse case management)? Give summary @ -I spoke with Meena Álvarez from [facility] who accepts admission Was smoking cessation discussed for >3mins.? @ -No Was critical care preformed (if so, how long)? @ -No Were there social determinants of health that impacted care today? How? (Homelessness, low income, unemployed, alcoholism, drug addiction, transportation, low edu. Level, literacy, decrease access to med. care, half-way, rehab)? @ -No Was there de-escalation of care discussed even if they declined (Discuss DNR or withdrawal of care, Hospice)? DNR status @ -No What co-morbidities impacted this encounter? (DM, HTN, Smoking, COPD, CAD, Cancer, CVA, ARF, Chemo, Hep., AIDS, mental health diagnosis, sleep apnea, morbid obesity)? @ -None Was patient admitted / discharged? Hospital course, mention meds given and route, prescriptions, significant lab abnormalities, going to OR and other pe rtinent info. @ -Admitted, see above for details Undiagnosed new problem with uncertain prognosis? @ -No Drug Therapy requiring intensive monitoring for toxicity (Heparin, Nitro, Insulin, Cardizem)? @ -No Were any procedures done? @ -No Diagnosis/symptom? @ -A-fib Acute, or Chronic, or Acute on Chronic? @ -Acute on chronic Uncomplicated (without systemic symptoms) or Complicated (systemic symptoms)? @ -Complicated Side effects of treatment? @ -No Exacerbation, Progression, or Severe Exacerbation? @ -No Poses a threat to life or bodily function? How? (Chest pain, [place], [place], pneumonia, PE, COPD, DKA, ARF, appy, cholecystitis, CVA, Diverticulitis, Homicidal, Suicidal, threat to staff... and all critical care pts) @ -Yes - Lab Data Result diagrams: 12/01/24 21:08 12/01/24 21:08 Lab Results 12/01/24 12/01/24 12/01/24 Range/Units 21:08 21:08 21:08 WBC 3.5 L (3.8-10.6) k/uL RBC 3.14 L (4.30-5.90) m/uL Hgb 9.6 L (13.0-17.5) gm/dL Hct 28.5 L (39.0-53.0) % MCV 90.6 (80.0-100.0) fL MCH 30.6 (25.0-35.0) pg MCHC 33.8 (31.0-37.0) g/dL RDW 16.4 H (11.5-15.5) % Plt Count 95 L (150-450) k/uL MPV 8.5 Neutrophils % 76 % Lymphocytes % 12 % Monocytes % 7 % Eosinophils % 3 % Basophils % 0 % Neutrophils # 2.6 (1.3-7.7) k/uL Lymphocytes # 0.4 L (1.0-4.8) k/uL Monocytes # 0.2 (0-1.0) k/uL Eosinophils # 0.1 (0-0.7) k/uL Basophils # 0.0 (0-0.2) k/uL Manual Slide Review Performed Anisocytosis Slight Tear Drop Cells Present PT 12.1 (10.0-12.5) sec INR 1.1 (<1.2) APTT 25.5 (22.0-30.0) sec Sodium 139 (137-145) mmol/L Potassium 3.7 (3.5-5.1) mmol/L Chloride 110 H (98-107) mmol/L Carbon Dioxide 21 L (22-30) mmol/L Anion Gap 8 mmol/L BUN 18 (9-20) mg/dL Creatinine 1.30 H (0.66-1.25) mg/dL Est GFR (CKD-EPI)AfAm 59 (>60 ml/min/1.73 sqM) Est GFR (CKD-EPI)NonAf 51 (>60 ml/min/1.73 sqM) Glucose 84 (74-99) mg/dL Calcium 8.0 L (8.4-10.2) mg/dL Magnesium 2.2 (1.6-2.3) mg/dL Total Bilirubin 0.8 (0.2-1.3) mg/dL AST 31 (17-59) U/L ALT 20 (4-49) U/L Alkaline Phosphatase 251 H (38-126) U/L Troponin I (0.000-0.034) ng/mL Total Protein 5.8 L (6.3-8.2) g/dL Albumin 3.0 L (3.5-5.0) g/dL 12/01/24 Range/Units 21:08 WBC (3.8-10.6) k/uL RBC (4.30-5.90) m/uL Hgb (13.0-17.5) gm/dL Hct (39.0-53.0) % MCV (80.0-100.0) fL MCH (25.0-35.0) pg MCHC (31.0-37.0) g/dL RDW (11.5-15.5) % Plt Count (150-450) k/uL MPV Neutrophils % % Lymphocytes % % Monocytes % % Eosinophils % % Basophils % % Neutrophils # (1.3-7.7) k/uL Lymphocytes # (1.0-4.8) k/uL Monocytes # (0-1.0) k/uL Eosinophils # (0-0.7) k/uL Basophils # (0-0.2) k/uL Manual Slide Review Anisocytosis Tear Drop Cells PT (10.0-12.5) sec INR (<1.2) APTT (22.0-30.0) sec Sodium (137-145) mmol/L Potassium (3.5-5.1) mmol/L Chloride (98-107) mmol/L Carbon Dioxide (22-30) mmol/L Anion Gap mmol/L BUN (9-20) mg/dL Creatinine (0.66-1.25) mg/dL Est GFR (CKD-EPI)AfAm (>60 ml/min/1.73 sqM) Est GFR (CKD-EPI)NonAf (>60 ml/min/1.73 sqM) Glucose (74-99) mg/dL Calcium (8.4-10.2) mg/dL Magnesium (1.6-2.3) mg/dL Total Bilirubin (0.2-1.3) mg/dL AST (17-59) U/L ALT (4-49) U/L Alkaline Phosphatase (38-126) U/L Troponin I 0.025 (0.000-0.034) ng/mL Total Protein (6.3-8.2) g/dL Albumin (3.5-5.0) g/dL Disposition Clinical Impression: Atrial fibrillation, Ventricular tachycardia Disposition: ADMITTED IP TO THIS HOSP Condition: Fair Time of Disposition: 21:14
[2024-12-01 21:44] LABS: ALT 20 U/L (4-49); AST 31 U/L (17-59); African American GFR (CKD) 59 (>60 ml/min/1.73 sqM); Alkaline Phosphatase 251 U/L (38-126); Anion Gap 8 mmol/L; Blood Urea Nitrogen 18 mg/dL (9-20); Carbon Dioxide 21 mmol/L (22-30); Chloride 110 mmol/L (98-107); Glucose 84 mg/dL (74-99); Magnesium 2.2 mg/dL (1.6-2.3); Non-African American GFR(CKD) 51 (>60 ml/min/1.73 sqM); Potassium 3.7 mmol/L (3.5-5.1); Sodium 139 mmol/L (137-145); Total Bilirubin 0.8 mg/dL (0.2-1.3); Total Protein 5.8 g/dL (6.3-8.2)
[2024-12-01 21:59] LABS: INR 1.1 (<1.2); Partial Thromboplastin Time 25.5 sec (22.0-30.0); Prothrombin Time 12.1 sec (10.0-12.5)
[2024-12-01 22:14] LABS: Anisocytosis Slight; Basophils % (A) 0 %; Eosinophils # (A) 0.1 k/uL (0-0.7); Eosinophils % (A) 3 %; HCT 28.5 % (39.0-53.0); HGB 9.6 gm/dL (13.0-17.5); Lymphocytes # (A) 0.4 k/uL (1.0-4.8); Lymphocytes % (A) 12 %; MCH 30.6 pg (25.0-35.0); MCHC 33.8 g/dL (31.0-37.0); MCV 90.6 fL (80.0-100.0); Mean Platelet Volume 8.5; Monocytes # (A) 0.2 k/uL (0-1.0); Monocytes % (A) 7 %; Neutrophils # (A) 2.6 k/uL (1.3-7.7); Neutrophils % (A) 76 %; RBC 3.14 m/uL (4.30-5.90); RDW 16.4 % (11.5-15.5); WBC 3.5 k/uL (3.8-10.6)
[2024-12-01 22:31] LABS: Platelet Count 95 k/uL (150-450); Tear Drop Cells Present
[2024-12-02 09:17] LABS: African American GFR (CKD) 53 (>60 ml/min/1.73 sqM); Anion Gap 7 mmol/L; Blood Urea Nitrogen 18 mg/dL (9-20); Calcium 8.1 mg/dL (8.4-10.2); Carbon Dioxide 23 mmol/L (22-30); Chloride 110 mmol/L (98-107); Glucose 85 mg/dL (74-99); Non-African American GFR(CKD) 46 (>60 ml/min/1.73 sqM); Potassium 3.8 mmol/L (3.5-5.1); Sodium 140 mmol/L (137-145)
--- NOTE | 2024-12-02 13:25 | P.HPIM ---
History of Present Illness Patient pleasant 79-year-old male transferred from [facility] after he presented there with weakness dizziness and shortness of breath. Patient was found to be in atrial fibrillation and had few runs of V. tach started on a miodarone IV was subsequently sent in. Here for cardiology evaluation. Patient has a pacemaker and a defibrillator along with a Watchman for congestive heart failure and atrial fibrillation respectively. Pacemaker has not been interrogated yet. Patient is not on any anticoagulation at this time patient is rate controlled presently sinus rhythm. Patient denied any symptoms at this time. Patient is on Entresto at home for congestive heart failure systolic dysfunction with EF of around 30 to 35% from the echocardiogram from 2019. Patient denied any chest pain at this time. REVIEW OF SYSTEMS: All other systems are negative except those mentioned in the HPI PHYSICAL EXAMINATION: GENERAL: The patient is alert and oriented x3, not in any acute distress. Well developed, well nourished. HEENT: Pupils are round and equally reacting to light. EOMI. No scleral icterus. No conjunctival pallor. Normocephalic, atraumatic. No pharyngeal erythema. No thyromegaly. CARDIOVASCULAR: S1 and S2 present. No murmurs, rubs, or gallops. PULMONARY: Chest is clear to auscultation, no wheezing or crackles. ABDOMEN: Soft, nontender, nondistended, normoactive bowel sounds. No palpable organomegaly. MUSCULOSKELETAL: No joint swelling or deformity. EXTREMITIES: No cyanosis, clubbing, or pedal edema. NEUROLOGICAL: Gross neurological examination did not reveal any focal deficits. SKIN: No rashes. Assessment and plan -Runs of V. tach and atrial fibrillation: Presently atrial fibrillation is rate controlled pacemaker interrogation, cardiology evaluation patient is on oral amiodarone which was resumed patient was given IV amiodarone in ER. If cleared by cardiology patient probably can be discharged later today. -Congestive failure chronic systolic function without any acute exacerbation patient is on Entresto but patient has slightly worsening of kidney function because of which I will hold 1 of 2 doses of Entresto. Patient tolerates Entresto very well. -Acute renal failure on chronic kidney disease stage II: Hold off Entresto as mentioned above because of acute renal failure -Paroxysmal atrial fibrillation presently sinus rhythm -Hyperlipidemia -Hypertension DVT prophylaxis: Early ambulation possibility of discharge later today or tomorrow morning Past Medical History Past Medical History: Atrial Fibrillation, Hyperlipidemia, Hypertension, Skin Disorder, Thyroid Disorder Additional Past Medical History / Comment(s): Coronary artery disease, history of insertion of a pacer/defibrillator, chronic atrial fibrillation, hypertension, hyperlipidemia, hypothyroidism, chronic atrial fibrillation maintained on anticoagulation with warfarin, urinary incontinence History of Any Multi-Drug Resistant Organisms: None Reported Past Surgical History: Cholecystectomy, Pacemaker Additional Past Surgical History / Comment(s): defibrillator Past Anesthesia/Blood Transfusion Reactions: No Reported Reaction Type of Cardiac Device: Permanent Pacemaker, AICD Device Placement Date:: u Past Psychological History: No Psychological Hx Reported Past Alcohol Use History: None Reported Past Drug Use History: None Reported Medications and Allergies Home Medications Medication Instructions Recorded Confirmed Type Amiodarone [Cordarone] 200 mg PO DAILY 03/12/18 12/02/24 History Atorvastatin [Lipitor] 20 mg PO DAILY 03/12/18 12/02/24 History Finasteride [Proscar] 5 mg PO DAILY 03/12/18 12/02/24 History Levothyroxine Sodium [Synthroid] 150 mcg PO DAILY 03/12/18 12/02/24 History allopurinoL [Zyloprim] 300 mg PO DAILY 03/12/18 12/02/24 History Metoprolol Tartrate [Lopressor] 25 mg PO BID #60 tab 03/16/18 12/02/24 Rx Ferrous Sulfate [Iron (65 MG 325 mg PO DAILY 12/02/24 12/02/24 History Elemental)] Sacubitril/Valsartan [Entresto 24 1 tab PO BID 12/02/24 12/02/24 History mg-26 mg Tablet] Allergies Allergy/AdvReac Type Severity Reaction Status Date / Time No Known Allergies Allergy Verified 12/02/24 09:02 Physical Exam Vitals: Vital Signs Temp Pulse Resp BP Pulse Ox 12/02/24 11:37 57 L 16 129/72 99 12/02/24 10:31 60 22 118/65 97 12/02/24 09:44 58 L 16 115/45 97 12/02/24 07:54 69 14 128/76 99 12/02/24 06:05 57 L 18 148/81 99 12/02/24 03:49 61 18 125/69 12/01/24 23:33 57 L 14 120/63 95 12/01/24 22:25 96 18 131/65 98 01/10/25 20:28 98.4 F 63 16 141/96 97 Intake and Output 12/01/24 12/02/24 12/02/24 22:59 06:59 14:59 Other: Weight 90 kg Results CBC & Chem 7: 12/01/24 21:08 12/02/24 08:08 Labs: Abnormal Lab Results - Last 24 Hours (Table) 12/01/24 12/01/24 12/02/24 Range/Units 21:08 21:08 08:08 WBC 3.5 L (3.8-10.6) k/uL RBC 3.14 L (4.30-5.90) m/uL Hgb 9.6 L (13.0-17.5) gm/dL Hct 28.5 L (39.0-53.0) % RDW 16.4 H (11.5-15.5) % Plt Count 95 L (150-450) k/uL Lymphocytes # 0.4 L (1.0-4.8) k/uL Chloride 110 H 110 H (98-107) mmol/L Carbon Dioxide 21 L (22-30) mmol/L Creatinine 1.30 H 1.42 H (0.66-1.25) mg/dL Calcium 8.0 L 8.1 L (8.4-10.2) mg/dL Alkaline Phosphatase 251 H (38-126) U/L Total Protein 5.8 L (6.3-8.2) g/dL Albumin 3.0 L (3.5-5.0) g/dL
--- NOTE | 2024-12-02 13:25 | P.DS ---
Providers Date of admission: 12/01/24 21:24 Attending physician: Hanane Mejias Consults: 12/01/24 21:11 Consult Physician Urgent Consulting Provider: [place] Consult Reason/Comments: A-fib, runs of V. tach Do you want consulting provider notified?: Yes, Notify in am Primary care physician: Gaudencio Gambino MD Hospital Course: Patient pleasant 79-year-old male transferred from [facility] after he presented there with weakness dizziness and shortness of breath. Patient was found to be in atrial fibrillation and had few runs of V. tach started on amiodarone IV was subsequently sent in. Here for cardiology evaluation. Patient has a pacemaker and a defibrillator along with a Watchman for congestive heart failure and atrial fibrillation respectively. Pacemaker has not been interrogated yet. Patient is not on any anticoagulation at this time patient is rate controlled presently sinus rhythm. Patient denied any symptoms at this time. Patient is on Entresto at home for congestive heart failure systolic dysfunction with EF of around 30 to 35% from the echocardiogram from 2019. Patient denied any chest pain at this time. REVIEW OF SYSTEMS: All other systems are negative except those mentioned in the HPI PHYSICAL EXAMINATION: GENERAL: The patient is alert and oriented x3, not in any acute distress. Well developed, well nourished. HEENT: Pupils are round and equally reacting to light. EOMI. No scleral icterus. No conjunctival pallor. Normocephalic, atraumatic. No pharyngeal erythema. No thyromegaly. CARDIOVASCULAR: S1 and S2 present. No murmurs, rubs, or gallops. PULMONARY: Chest is clear to auscultation, no wheezing or crackles. ABDOMEN: Soft, nontender, nondistended, normoactive bowel sounds. No palpable organomegaly. MUSCULOSKELETAL: No joint swelling or deformity. EXTREMITIES: No cyanosis, clubbing, or pedal edema. NEUROLOGICAL: Gross neurological examination did not reveal any focal deficits. SKIN: No rashes. Assessment and plan -Runs of V. tach and atrial fibrillation: Presently atrial fibrillation is rate controlled pacemaker interrogation, cardiology evaluation patient is on oral amiodarone which was resumed patient was given IV amiodarone in ER. If cleared by cardiology patient probably can be discharged later today. -Congestive failure chronic systolic function without any acute exacerbation patient is on Entresto but patient has slightly worsening of kidney function because of which I will hold 1 of 2 doses of Entresto. Patient tolerates Entresto very well. -Acute renal failure on chronic kidney disease stage II: Hold off Entresto as mentioned above because of acute renal failure -Paroxysmal atrial fibrillation presently sinus rhythm -Hyperlipidemia -Hypertension Patient Condition at Discharge: Fair Plan - Discharge Summary New Discharge Prescriptions: Continue Finasteride [Proscar] 5 mg PO DAILY Amiodarone [Cordarone] 200 mg PO DAILY allopurinoL [Zyloprim] 300 mg PO DAILY Levothyroxine Sodium [Synthroid] 150 mcg PO DAILY Atorvastatin [Lipitor] 20 mg PO DAILY Metoprolol Tartrate [Lopressor] 25 mg PO BID #60 tab Ferrous Sulfate [Iron (65 MG Elemental)] 325 mg PO DAILY Sacubitril/Valsartan [Entresto 24 mg-26 mg Tablet] 1 tab PO BID Discharge Medication List Amiodarone [Cordarone] 200 mg PO DAILY 03/12/18 [History] Atorvastatin [Lipitor] 20 mg PO DAILY 03/12/18 [History] Finasteride [Proscar] 5 mg PO DAILY 03/12/18 [History] Levothyroxine Sodium [Synthroid] 150 mcg PO DAILY 03/12/18 [History] allopurinoL [Zyloprim] 300 mg PO DAILY 03/12/18 [History] Metoprolol Tartrate [Lopressor] 25 mg PO BID #60 tab 03/16/18 [Rx] Ferrous Sulfate [Iron (65 MG Elemental)] 325 mg PO DAILY 12/02/24 [History] Sacubitril/Valsartan [Entresto 24 mg-26 mg Tablet] 1 tab PO BID 12/02/24 [History] Follow up Appointment(s)/Referral(s): Gaudencio Gambino MD [Primary Care Provider] - 3 Days Discharge Disposition: HOME SELF-CARE
[2024-12-02] MEDS: FINASTERIDE 5 MG TAB PO SCH (13:53)
[2024-12-02] MEDS: AMIODARONE 200 MG TAB PO SCH (13:53)
--- NOTE | 2024-12-02 15:30 | P.CRDCN ---
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 He states over the past 6 weeks he has been having increasing episodes of weakness, head spinning, and feeling like he is going to pass out. Yesterday he went to his doctor's office and was trying to get off the scale when he suddenly got short of breath. He went to the emergency department and was told he was in A-fib, then converted to sinus rhythm, and then was found to be in a slow VT. He typically follows with his cardiology every 6 months but has not been seen since last summer. He did feel fine the day prior and was cleaning the house without issues. He does typically walk with a cane. He has not had any recent episodes of syncope. Prior echo from 2017 showed EF 35-40%, more recent echo 2020 with a EF 45-50%. Labs reviewed: WBC 3.5, hemoglobin 9.6, creatinine 1.42, potassium 3.8, mag 2.2, troponin negative x 3, BNP 2280. He denies having any fevers or chills. No recent medication changes. He has had a decreased appetite and lost a few pounds in the past couple weeks. REVIEW OF SYSTEMS: No fever or chills. No cough or expectoration. No diaphoresis. Patient denies headache, blurred vision, double vision. Patient denies any stomach discomfort. No nausea, vomiting. No hematochezia. No hematemesis. Denies any black stools or blood in his stools. Denies dysuria or hematuria. No muscle numbness. No chest pain or pressure. Reports feeling generalized weakness, dizziness and shortness of breath PHYSICAL EXAMINATION: This is a 79 year-old male in no apparent distress at the time of my examination. HEENT: Head is atraumatic, normocephalic. Pupils are equal, round. Sclerae anicteric. Conjunctivae are clear. Mucous membranes of the mouth are moist. Neck is supple. There is no jugular venous distention. No carotid bruit is heard. CHEST EXAMINATION: Lungs are clear to auscultation. No chest wall tenderness is noted on palpation or with deep breathing. HEART EXAMINATION: Heart regular rate and rhythm. S1, S2 heard. No murmurs, gallops or rub. ABDOMEN: Soft, nontender. Bowel sounds are heard. No organomegaly noted. EXTREMITIES: 2+ peripheral pulses with no evidence of peripheral edema and no calf tenderness noted. NEUROLOGIC EXAMINATION: Patient is awake, alert and oriented x3. IMPRESSION AND PLAN: Atrial fibrillation, paroxysmal Ventricular tachycardia Hypertension Hyperlipidemia Dizziness CAD CHF Status post AICD Status post Watchman device Dyspnea PLAN: We will check device interrogation to evaluate for arrhythmias. Check orthostatic vital signs. Continue with amiodarone. Recommend echocardiogram, however this will not likely be able to be done until Wednesday, therefore, if device interrogation and orthostatic vital signs are stable, patient cleared for discharge home with close follow-up with his primary auditor appraiser. Patient and family verbalized understanding. Further recommendations pending clinical course. I am dictating on behalf of Dr. Fabrizio Holley's history/physical and assessment/plan. Past Medical History Past Medical History: Atrial Fibrillation, Hyperlipidemia, Hypertension, Skin Disorder, Thyroid Disorder Additional Past Medical History / Comment(s): Coronary artery disease, history of insertion of a pacer/defibrillator, chronic atrial fibrillation, hypertension, hyperlipidemia, hypothyroidism, chronic atrial fibrillation maintained on anticoagulation with warfarin, urinary incontinence History of Any Multi-Drug Resistant Organisms: None Reported Past Surgical History: Cholecystectomy, Pacemaker Additional Past Surgical History / Comment(s): defibrillator Past Anesthesia/Blood Transfusion Reactions: No Reported Reaction Type of Cardiac Device: Permanent Pacemaker, AICD Device Placement Date:: u Past Psychological History: No Psychological Hx Reported Past Alcohol Use History: None Reported Past Drug Use History: None Reported Medications and Allergies Home Medications Medication Instructions Recorded Confirmed Type Amiodarone [Cordarone] 200 mg PO DAILY 03/12/18 12/02/24 History Atorvastatin [Lipitor] 20 mg PO DAILY 03/12/18 12/02/24 History Finasteride [Proscar] 5 mg PO DAILY 03/12/18 12/02/24 History Levothyroxine Sodium [Synthroid] 150 mcg PO DAILY 03/12/18 12/02/24 History allopurinoL [Zyloprim] 300 mg PO DAILY 03/12/18 12/02/24 History Metoprolol Tartrate [Lopressor] 25 mg PO BID #60 tab 03/16/18 12/02/24 Rx Ferrous Sulfate [Iron (65 MG 325 mg PO DAILY 12/02/24 12/02/24 History Elemental)] Sacubitril/Valsartan [Entresto 24 1 tab PO BID 12/02/24 12/02/24 History mg-26 mg Tablet] Allergies Allergy/AdvReac Type Severity Reaction Status Date / Time No Known Allergies Allergy Verified 12/02/24 09:02 Physical Exam Vitals: Vital Signs Temp Pulse Resp BP BP BP BP 12/02/24 15:11 123/91 124/72 133/73 12/02/24 11:37 57 L 16 129/72 12/02/24 10:31 60 22 118/65 12/02/24 09:44 58 L 16 115/45 12/02/24 07:54 69 14 128/76 12/02/24 06:05 57 L 18 148/81 12/02/24 03:49 61 18 125/69 12/01/24 23:33 57 L 14 120/63 12/01/24 22:25 96 18 131/65 12/01/24 20:28 98.4 F 63 16 141/96 Pulse Ox 12/02/24 15:11 12/02/24 11:37 99 12/02/24 10:31 97 12/02/24 09:44 97 12/02/24 07:54 99 12/02/24 06:05 99 12/02/24 03:49 12/01/24 23:33 95 12/01/24 22:25 98 12/01/24 20:28 97 Results 12/01/24 21:08 12/02/24 08:08 Cardiac Enzymes 12/01/24 12/01/24 12/01/24 Range/Units 21:08 21:08 23:27 AST 31 (17-59) U/L Troponin I 0.025 0.025 (0.000-0.034) ng/mL 12/02/24 Range/Units 03:11 AST (17-59) U/L Troponin I 0.031 (0.000-0.034) ng/mL Coagulation 12/01/24 Range/Units 21:08 PT 12.1 (10.0-12.5) sec APTT 25.5 (22.0-30.0) sec CBC 12/01/24 Range/Units 21:08 WBC 3.5 L (3.8-10.6) k/uL RBC 3.14 L (4.30-5.90) m/uL Hgb 9.6 L (13.0-17.5) gm/dL Hct 28.5 L (39.0-53.0) % Plt Count 95 L (150-450) k/uL Comprehensive Metabolic Panel 12/01/24 12/02/24 Range/Units 21:08 08:08 Sodium 139 140 (137-145) mmol/L Potassium 3.7 3.8 (3.5-5.1) mmol/L Chloride 110 H 110 H (98-107) mmol/L Carbon Dioxide 21 L 23 (22-30) mmol/L BUN 18 18 (9-20) mg/dL Creatinine 1.30 H 1.42 H (0.66-1.25) mg/dL Glucose 84 85 (74-99) mg/dL Calcium 8.0 L 8.1 L (8.4-10.2) mg/dL AST 31 (17-59) U/L ALT 20 (4-49) U/L Alkaline Phosphatase 251 H (38-126) U/L Total Protein 5.8 L (6.3-8.2) g/dL Albumin 3.0 L (3.5-5.0) g/dL Current Medications Generic Name Dose Route Start Last Admin Trade Name Freq PRN Reason Stop Dose Admin Amiodarone HCl 200 mg 12/02/24 12:45 12/02/24 13:53 Amiodarone 200 Mg Tab PO 200 mg DAILY [facility] Administration Atorvastatin Calcium 20 mg 12/03/24 09:00 Atorvastatin 20 Mg Tab PO DAILY A[facility]INE Finasteride 5 mg 12/02/24 12:45 12/02/24 13:53 Finasteride 5 Mg Tab PO 5 mg DAILY [facility] Administration Levothyroxine Sodium 150 mcg 12/03/24 06:30 Levothyroxine 75 Mcg Tab PO DAILY@0630 [facility] Metoprolol Tartrate 25 mg 12/02/24 21:00 Metoprolol Tartrate 25 Mg Tab PO BID [facility] Naloxone HCl 0.2 mg 12/01/24 21:11 Naloxone 0.4 Mg/Ml 1 Ml Vial IV Q2M PRN Opioid Reversal 12/01/24 21:08 12/02/24 08:08
[2024-12-02 17:33] VITALS: BP 139/75; PULSE 78; RESP 18; TEMP 97.9
[2024-12-02] MEDS ORDERED: METOPROLOL TARTRATE 25 MG TAB PO SCH (21:00)
[2024-12-03] MEDS ORDERED: LEVOTHYROXINE 75 MCG TAB PO SCH (06:30)
[2024-12-03] MEDS ORDERED: ATORVASTATIN 20 MG TAB PO SCH (09:00)
== END 2024-12-02 17:33 | disposition home or self-care (01) ==
LOC: EC 20:27 → 3SCARD 21:24 → INTOOBSV 21:24 → 3SCARD 12-02 13:11 → UNDODISOB 12-02 17:33 → UNDODISIN 12-02 17:33
PROVIDERS: ADMIT Hospitalist; ATTEND Hospitalist
DX: I48.0 Paroxysmal atrial fibrillation (principal); I47.20 Ventricular tachycardia, unspecified; N17.9 Acute kidney failure, unspecified; I13.0 Hypertensive heart and chronic kidney disease with heart failure and stage 1 through stage 4 chronic kidney disease, or unspecified chronic kidney disease; I50.9 Heart failure, unspecified; N18.2 Chronic kidney disease, stage 2 (mild); E78.5 Hyperlipidemia, unspecified; I25.10 Atherosclerotic heart disease of native coronary artery without angina pectoris; E03.9 Hypothyroidism, unspecified; I25.2 Old myocardial infarction; Z95.810 Presence of automatic (implantable) cardiac defibrillator; Z79.01 Long term (current) use of anticoagulants; Z79.890 Hormone replacement therapy; Z79.899 Other long term (current) drug therapy
CPT/HCPCS: 99285; 36415; 93005; 83880; 80053; 80048; 83735; 84484 ×2; 85025; 85610; 85730; G0378 ×2; S0138